=== PATIENT | female | born 1930 | race Caucasian/White ===

== ENCOUNTER 2017-03-30 06:13 | Inpatient (IN) | payer MEDICARE, BC ==
[~2017-03-30] VITALS: Ht 154.9 cm; Wt 45.4 kg
[2017-03-30] VITALS (7 sets, daily range): BP systolic 92–166; BP diastolic 57–79; PULSE 60–86; RESP 17–18; TEMP 96.6–98.6; O2SAT 93–97
[~2017-03-30 06:13] MED LIST: BONE UP; MEMA10 PO
[2017-03-30] MEDS ORDERED: D 50CAP2 PO (06:25)
[2017-03-30] MEDS ORDERED: CELE10TA PO (06:25)
[2017-03-30] MEDS ORDERED: MELA5 PO (06:25)
[2017-03-30] MEDS ORDERED: MEMA1TAB2 PO (06:25)
[2017-03-30] MEDS ORDERED: MULTTAB67 PO (06:25)
--- NOTE | 2017-03-30 06:48 | PD ---
HPI Chief Complaint: Hip Injury Time Seen by Provider: 06:43 Travel History International Travel<30 days: No Contact w/Intl Traveler<30days: No Traveled to known affect area: No History of Present Illness HPI Patient is an 87-year-old from a residential fell comes in with pain in her right lateral hip area there is no hematoma slight swelling patient does not seem to be in distress she has dementia when I ask her if she has pain she points to her hip lateral. She has pain with internal rotation of the femoral head. Mild shortening of the right foot it is not everted. She is given 2 of morphine en route by paramedics. Patient is a poor historian due to her dementia ROS and history of present illness is limited due to dementia patient is oriented only to person. The injury happened just prior to arrival and patient has not seen another M.D. for this 2 of morphine was given en route with moderate relief of her pain. Patient does not seem to have any extremity pain while she is lying still on the stretcher [facility] Past Medical History Alzheimer's Disease: Yes Arthritis: Yes Depression: Yes (DEPRESSIVE EPISODES ) Cancer: No Diabetes: No Diminished Hearing: Yes Hepatitis: No Hiatal Hernia: No Hypertension: No Insomnia: Yes Medical other: Yes (DYSPHAGIA, ATHEROSCLEROSIS OF [place] IN [place] ARTERIES BLE) Thyroid Disease: No Tetanus Vaccination: Never Vaccinated Past Surgical History Eye Surgery: Yes (RIGHT EYE CATARACT SX) Gynecologic Surgery: Yes (HYSTERECTOMY) Pacemaker: No Other Surgery: Yes Social History Alcohol Use: No Tobacco Use: No Substance Use: No Allergies-Medications (Allergen,Severity, Reaction): Coded Allergies: No Known Allergies (Verified Allergy, Unknown, 03/30/17) Reported Meds & Prescriptions Reported Meds & Active Scripts Active Reported Multiple Vitamin 1 Tab 1 Tab PO DAILY Memantine 10 Mg Tab 10 Mg PO DAILY Melatonin 5 Mg Tab 3 Mg PO HS D3 Maximum Strength (Cholecalciferol) 5,000 Unit Cap 5,000 Units PO DAILY Celexa (Citalopram Hydrobromide) 10 Mg Tab 10 Mg PO DAILY [Bone Up] DAILYPRN Review of Systems ROS Limitations: Poor Historian (dementia), Other: (dementia) Musculoskeletal: Positive: Myalgias, Arthralgias (right hip tender after fall) Physical Exam Narrative GENERAL: Patient is lying in the stretcher not moving and with no significant distress at this time SKIN: Warm and dry. HEAD: Atraumatic. Normocephalic. EYES: Pupils equal and round. No scleral icterus. No injection or drainage. ENT: No nasal bleeding or discharge. Mucous membranes pink and moist. NECK: Trachea midline. No JVD. CARDIOVASCULAR: Regular rate and rhythm. RESPIRATORY: No accessory muscle use. Clear to auscultation. Breath sounds equal bilaterally. GASTROINTESTINAL: Abdomen soft, non-tender, nondistended. Hepatic and splenic margins not palpable. MUSCULOSKELETAL: Extremities: patient has tenderness to the lateral aspect of her right hip , no hematoma seen , + mild swelling. slight internal rotation of leg causes increased pain NEUROLOGICAL: Awake and alert. No obvious focal deficit PSYCHIATRIC: Patient is oriented to person only. Data Data Last Documented VS Vital Signs Date Time Temp Pulse Resp B/P (MAP) Pulse Ox O2 Delivery O2 Flow Rate FiO2 03/30/17 07:52 67 18 97 Room Air 03/30/17 06:16 98.1 Orders Orders Hip, Uni(Ap&Lat) W Ap Pelvis (03/30/17 ) Electrocardiogram (03/30/17 07:21) Complete Blood Count With Diff (03/30/17 07:21) Comprehensive Metabolic Panel (03/30/17 07:21) Prothrombin Time / Inr (Pt) (03/30/17 07:21) Act Partial Throm Time (Ptt) (03/30/17 07:21) Urinalysis - C+S If Indicated (03/30/17 07:21) Type And Screen (03/30/17 07:21) Chest, Single Ap (03/30/17 07:21) Iv Access Insert/Monitor (03/30/17 07:21) Oximetry (03/30/17 07:21) Ecg Monitoring (03/30/17 07:21) Sodium Chloride 0.9% Flush (Ns Flush) (03/30/17 07:30) Diet Npo (03/30/17 Breakfast) Morphine Inj (Morphine Inj) (03/30/17 07:30) Urine Culture (03/30/17 08:20) Consult Orthopedic (03/30/17 ) Urinary Catheter Insert/Apply (03/30/17 09:00) Ct Hip W/O Contrast (03/30/17 ) Ceftriaxone Inj (Rocephin Inj) (03/30/17 09:15) (Hub Use Only)Inp Phy Cons/Ref (03/30/17 ) Admit Order (Ed Use Only) (03/30/17 09:27) Labs Laboratory Tests Test 03/30/17 07:46 03/30/17 08:20 White Blood Count 9.4 TH/MM3 Red Blood Count 4.36 MIL/MM3 Hemoglobin 12.4 GM/DL Hematocrit 37.2 % Mean Corpuscular Volume 85.3 FL Mean Corpuscular Hemoglobin 28.4 PG Mean Corpuscular Hemoglobin Concent 33.3 % Red Cell Distribution Width 13.8 % Platelet Count 239 TH/MM3 Mean Platelet Volume 8.5 FL Neutrophils (%) (Auto) 77.6 % Lymphocytes (%) (Auto) 14.3 % Monocytes (%) (Auto) 6.9 % Eosinophils (%) (Auto) 0.5 % Basophils (%) (Auto) 0.7 % Neutrophils # (Auto) 7.3 TH/MM3 Lymphocytes # (Auto) 1.4 TH/MM3 Monocytes # (Auto) 0.6 TH/MM3 Eosinophils # (Auto) 0.0 TH/MM3 Basophils # (Auto) 0.1 TH/MM3 CBC Comment DIFF FINAL Differential Comment Prothrombin Time 10.9 SEC Prothromb Time International Ratio 1.1 RATIO Activated Partial Thromboplast Time 26.3 SEC Blood Urea Nitrogen 16 MG/DL Creatinine 0.61 MG/DL Random Glucose 96 MG/DL Total Protein 7.0 GM/DL Albumin 3.5 GM/DL Calcium Level 8.7 MG/DL Alkaline Phosphatase 77 U/L Aspartate Amino Transf (AST/SGOT) 42 U/L Alanine Aminotransferase (ALT/SGPT) 26 U/L Total Bilirubin 0.8 MG/DL Sodium Level 139 MEQ/L Potassium Level 4.9 MEQ/L Chloride Level 105 MEQ/L Carbon Dioxide Level 29.1 MEQ/L Anion Gap 5 MEQ/L Estimat Glomerular Filtration Rate 93 ML/MIN Urine Color YELLOW Urine Turbidity CLEAR Urine pH 7.0 Urine Specific [place] 1.018 Urine Protein NEG mg/dL Urine Glucose (UA) NEG mg/dL Urine Ketones NEG mg/dL Urine Occult Blood NEG Urine Nitrite NEG Urine Bilirubin NEG Urine Urobilinogen LESS THAN 2.0 MG/DL Urine Leukocyte Esterase TRACE Urine RBC 2 /hpf Urine WBC 1 /hpf Urine Squamous Epithelial Cells <1 /hpf Urine Transitional Epithelial Cells <1 /hpf Urine Amorphous Sediment FEW Urine Bacteria RARE /hpf Urine Mucus FEW /lpf Microscopic Urinalysis Comment CATH-CULTURE IND MDM Medical Decision Making Medical Screen Exam Complete: Yes Emergency Medical Condition: Yes Differential Diagnosis fractured HIP vs contusion vs muscle strain vs rami fracture pelvis ... Narrative Course hi suspicion of right HIP frx based on clinical exam , ordered xrays and signed out to next attending to follow and dispo Scripts Calcium Carbonate-Vitamin D (Calcium 600+D 200) 600-200 Mg-Unit Tab 1 TAB PO BID for Nutritional Supplement, #90 TAB 0 Refills Prov: Nima Sanchez Jr. 03/31/17 Ergocalciferol (Ergocalciferol) 50,000 Unit Cap 30632 UNITS PO Q7D for Nutritional Supplement, #8 CAP Prov: Nima Sanchez Jr. 03/31/17 Rivaroxaban (Xarelto) 10 Mg Tab 10 MG PO DAILY for Blood Clot Prevention, #14 TAB 0 Refills Prov: Nima Sanchez Jr. 03/31/17 Hydrocodone-Acetaminophen ([place]) 5 Mg-325 Mg Tab 1 TAB PO Q4H Y for PAIN, #40 TAB 0 Refills Prov: Nima Sanchez Jr. 03/31/17 Tobias Petty MD Mar 30, 2017 06:48
--- NOTE | 2017-03-30 07:17 | RADRPT ---
EXAM DATE/TIME: 03/30/2017 06:48 CORRECTION Corrected on: March 30, 2017; [facility] COMPARISON: No previous studies available for comparison. INDICATIONS : Right hip pain post fall MEDICAL HISTORY : None. SURGICAL HISTORY : None. ENCOUNTER: Initial ACUITY: 1 day PAIN SCORE: 9/10 LOCATION: Right pelvis FINDINGS: There is an acute intertrochanteric fracture involving the right proximal femoral neck. Degenerative changes and scoliosis of the lower lumbar spine are noted. CONCLUSION: 1. Acute intertrochanteric fracture involving right proximal femoral neck. 2. Degenerative changes and scoliosis of the lower lumbar spine. Cristi Aranda MD on March 30, 2017 at 7:13 Board Certified Radiologist. This report was verified electronically. Cristi Aranda MD on March 30, 2017 at 10:03 Board Certified Radiologist. This report was verified electronically.
[2017-03-30] MEDS ORDERED: SODIUM CHLORIDE 0.9% FLUSH 10 ML FLUSH IVF PRN (07:30)
[2017-03-30] MEDS ORDERED: MORPHINE SULFATE 2 MG/ML INJ IV PUSH ONE (07:30)
--- NOTE | 2017-03-30 07:50 | RADRPT ---
EXAM DATE/TIME: 03/30/2017 07:30 [facility] COMPARISON: No previous studies available for comparison. INDICATIONS : Shortness of breath. MEDICAL HISTORY : None. SURGICAL HISTORY : None. ENCOUNTER: Initial ACUITY: 1 day PAIN SCORE: 0/10 LOCATION: Bilateral chest FINDINGS: The heart is normal. The pulmonary vascular pattern is normal. There is a questionable nodular densit y within the right apex consistent with nodular infiltrate or true pulmonary nodule. Underlying emphy sematous changes are noted bilaterally. Degenerative changes and scoliosis of the thoracic spine are noted. CONCLUSION: 1. Questionable nodular density within the right apex consistent with nodule or nodular infiltrate. 2. Scattered emphysematous changes bilaterally. 3. Degenerative changes and scoliosis of the thoracic spine. Cristi Aranda MD on March 30, 2017 at 7:45 Board Certified Radiologist. This report was verified electronically.
[2017-03-30 08:11] LABS: AUTOMATED NEUTROPHIL # 7.3 TH/MM3 (1.8-7.7); BASOPHIL # 0.1 TH/MM3 (0-0.2); BASOPHIL % 0.7 % (0.0-2.0); EOSINOPHIL % 0.5 % (0.0-4.0); HEMATOCRIT 37.2 % (35.0-46.0); HEMOGLOBIN 12.4 GM/DL (11.6-15.3); LYMPH % 14.3 % (9.0-44.0); LYMPHOCYTE # 1.4 TH/MM3 (1.0-4.8); MEAN CELL VOLUME 85.3 FL (80.0-100.0); MEAN CORPUSCULAR HEMOGLOBIN 28.4 PG (27.0-34.0); MEAN CORPUSCULAR HGB CONC 33.3 % (32.0-36.0); MEAN PLATELET VOLUME 8.5 FL (7.0-11.0); MONO % 6.9 % (0.0-8.0); MONOCYTE # 0.6 TH/MM3 (0-0.9); NEUT % 77.6 % (16.0-70.0); PLATELET COUNT 239 TH/MM3 (150-450); RED BLOOD COUNT 4.36 MIL/MM3 (4.00-5.30); RED CELL DISTRIBUTION WIDTH 13.8 % (11.6-17.2); WHITE BLOOD COUNT 9.4 TH/MM3 (4.0-11.0)
[2017-03-30 08:24] LABS: INTERNATIONAL NORMALIZED RATIO 1.1 RATIO; PROTHROMBIN TIME - PATIENT 10.9 SEC (9.8-11.6)
[2017-03-30 08:31] LABS: ALKALINE PHOSPHATASE 77 U/L (45-117); TOTAL BILIRUBIN ADULT 0.8 MG/DL (0.2-1.0)
[2017-03-30 08:32] LABS: ALBUMIN 3.5 GM/DL (3.4-5.0); ALT (GPT) 26 U/L (10-53); BICARBONATE 29.1 MEQ/L (21.0-32.0); BLOOD UREA NITROGEN 16 MG/DL (7-18); CALCIUM 8.7 MG/DL (8.5-10.1); CHLORIDE 105 MEQ/L (98-107); CREATININE 0.61 MG/DL (0.50-1.00); GLOMERULAR FILTRATION RATE 93 ML/MIN (>89); GLUCOSE,RANDOM 96 MG/DL (74-106); SODIUM (NA) 139 MEQ/L (136-145)
[2017-03-30 08:36] LABS: AST (GOT) 42 U/L (15-37)
[2017-03-30 08:52] LABS: AMORPHOUS SEDIMENT, URINE FEW; BACTERIA, URINE RARE /hpf; BILIRUBIN, URINE NEG (NEG); BLOOD, URINE NEG (NEG); GLUCOSE,URINE NEG (NEG); KETONE, URINE NEG (NEG); MUCUS URINE FEW /lpf (OCC); NITRITE,URINE NEG (NEG); SQUAMOUS EPITHELIAL CELL URINE <1 /hpf (0-5); TRANSITIONAL EPI CELLS, URINE <1 /hpf; URINE COLOR YELLOW (YELLW/STRAW); URINE LEUKOCYTE ESTERASE TRACE (NEG)
--- NOTE | 2017-03-30 09:12 | PD ---
Physical Exam Narrative GENERAL: Well-nourished, well-developed patient. SKIN: Warm and dry. HEAD: Normocephalic and atraumatic. EYES: No injection or drainage. ENT: No nasal drainage noted. NECK: Supple, trachea midline. CARDIOVASCULAR: Regular rate and rhythm RESPIRATORY: no increased effort. No accessory muscle use. EXTREMITIES: pain with movement of right hip NEUROLOGICAL: Awake and alert to name. Motor and sensory grossly within normal limits. Normal speech. Data Data Last Documented VS Vital Signs Date Time Temp Pulse Resp B/P (MAP) Pulse Ox O2 Delivery O2 Flow Rate FiO2 03/30/17 07:52 67 18 97 Room Air 03/30/17 06:16 98.1 Orders Orders Hip, Uni(Ap&Lat) W Ap Pelvis (03/30/17 ) Electrocardiogram (03/30/17 07:21) Complete Blood Count With Diff (03/30/17 07:21) Comprehensive Metabolic Panel (03/30/17 07:21) Prothrombin Time / Inr (Pt) (03/30/17 07:21) Act Partial Throm Time (Ptt) (03/30/17 07:21) Urinalysis - C+S If Indicated (03/30/17 07:21) Type And Screen (03/30/17 07:21) Chest, Single Ap (03/30/17 07:21) Iv Access Insert/Monitor (03/30/17 07:21) Oximetry (03/30/17 07:21) Ecg Monitoring (03/30/17 07:21) Sodium Chloride 0.9% Flush (Ns Flush) (03/30/17 07:30) Diet Npo (03/30/17 Breakfast) Morphine Inj (Morphine Inj) (03/30/17 07:30) Urine Culture (03/30/17 08:20) Consult Orthopedic (03/30/17 ) Urinary Catheter Insert/Apply (03/30/17 09:00) Ct Hip W/O Contrast (03/30/17 ) Ceftriaxone Inj (Rocephin Inj) (03/30/17 09:15) (Hub Use Only)Inp Phy Cons/Ref (03/30/17 ) Admit Order (Ed Use Only) (03/30/17 09:27) Labs Laboratory Tests Test 03/30/17 07:46 03/30/17 08:20 White Blood Count 9.4 TH/MM3 Red Blood Count 4.36 MIL/MM3 Hemoglobin 12.4 GM/DL Hematocrit 37.2 % Mean Corpuscular Volume 85.3 FL Mean Corpuscular Hemoglobin 28.4 PG Mean Corpuscular Hemoglobin Concent 33.3 % Red Cell Distribution Width 13.8 % Platelet Count 239 TH/MM3 Mean Platelet Volume 8.5 FL Neutrophils (%) (Auto) 77.6 % Lymphocytes (%) (Auto) 14.3 % Monocytes (%) (Auto) 6.9 % Eosinophils (%) (Auto) 0.5 % Basophils (%) (Auto) 0.7 % Neutrophils # (Auto) 7.3 TH/MM3 Lymphocytes # (Auto) 1.4 TH/MM3 Monocytes # (Auto) 0.6 TH/MM3 Eosinophils # (Auto) 0.0 TH/MM3 Basophils # (Auto) 0.1 TH/MM3 CBC Comment DIFF FINAL Differential Comment Prothrombin Time 10.9 SEC Prothromb Time International Ratio 1.1 RATIO Activated Partial Thromboplast Time 26.3 SEC Blood Urea Nitrogen 16 MG/DL Creatinine 0.61 MG/DL Random Glucose 96 MG/DL Total Protein 7.0 GM/DL Albumin 3.5 GM/DL Calcium Level 8.7 MG/DL Alkaline Phosphatase 77 U/L Aspartate Amino Transf (AST/SGOT) 42 U/L Alanine Aminotransferase (ALT/SGPT) 26 U/L Total Bilirubin 0.8 MG/DL Sodium Level 139 MEQ/L Potassium Level 4.9 MEQ/L Chloride Level 105 MEQ/L Carbon Dioxide Level 29.1 MEQ/L Anion Gap 5 MEQ/L Estimat Glomerular Filtration Rate 93 ML/MIN Urine Color YELLOW Urine Turbidity CLEAR Urine pH 7.0 Urine Specific [place] 1.018 Urine Protein NEG mg/dL Urine Glucose (UA) NEG mg/dL Urine Ketones NEG mg/dL Urine Occult Blood NEG Urine Nitrite NEG Urine Bilirubin NEG Urine Urobilinogen LESS THAN 2.0 MG/DL Urine Leukocyte Esterase TRACE Urine RBC 2 /hpf Urine WBC 1 /hpf Urine Squamous Epithelial Cells <1 /hpf Urine Transitional Epithelial Cells <1 /hpf Urine Amorphous Sediment FEW Urine Bacteria RARE /hpf Urine Mucus FEW /lpf Microscopic Urinalysis Comment CATH-CULTURE IND MDM Supervised Visit with MISTY: No Interpretation(s) CBC & BMP Diagram 03/30/17 07:46 Total Protein 7.0, Albumin 3.5, Calcium Level 8.7, Alkaline Phosphatase 77, Aspartate Amino Transf (AST/SGOT) 42 H, Alanine Aminotransferase (ALT/SGPT) 26, Total Bilirubin 0.8 Last 24 hours Impressions Chest X-Ray 03/30/17 0721 Signed Impressions: Service Date/Time: Thursday, March 30, 2017 07:30 - CONCLUSION: 1. Questionable nodular density within the right apex consistent with nodule or nodular infiltrate. 2. Scattered emphysematous changes bilaterally. 3. Degenerative changes and scoliosis of the thoracic spine. Cristi Aranda MD Hip and Pelvis X-Ray 03/30/17 0000 Signed Impressions: Service Date/Time: Thursday, March 30, 2017 06:48 - CONCLUSION: 1. Acute subcapital fracture involving right proximal femoral neck. 2. Degenerative changes and scoliosis of the lower lumbar spine. Cristi Aranda MD Narrative Course Signed over to me to follow x-ray and reevaluate. X-ray shows hip fracture. We 'll discuss with or so and admit. Son arrived at bedside and states patient does have dementia that his advanced but denies other significant medical problems for her. He agrees to admission and surgery Physician Communication Physician Communication ortho states to keep patient npo after midnight and requests ct of hip dr french agrees to admit Diagnosis Primary Impression: Hip fracture Qualified Codes: S72.001A - Fracture of unspecified part of neck of right femur, initial encounter for closed fracture Admitting Information Admitting Physician Requests: Admit Tamica Paredes MD Mar 30, 2017 09:12
[2017-03-30] MEDS ORDERED: cefTRIAXone INJ 1,000 MG in SODIUM CHLORIDE 0.9% INJ 100 ML IV ONE (09:15)
--- NOTE | 2017-03-30 10:04 | RADRPT ---
EXAM DATE/TIME: 03/30/2017 09:25 [facility] COMPARISON: HIP RIGHT (AP&LAT 2/3VWS) W AP PELVIS, March 30, 2017, 6:48. INDICATIONS : Fall, right lateral hip pain and swelling. RADIATION DOSE: 9.38 CTDIvol (mGy) MEDICAL HISTORY : Alzheimer's SURGICAL HISTORY : Hysterectomy. ENCOUNTER: Initial ACUITY: 1 day PAIN SCALE: 5/10 LOCATION: Right pelvis TECHNIQUE: Volumetric scanning of the hip was performed. Using automated exposure control and adjustment of the mA and/or kV according to patient size, radiation dose was kept as low as reasonably achievable to o btain optimal diagnostic quality images. DICOM format image data is available electronically for rev iew and comparison. FINDINGS: There is evidence of an acute mildly displaced intertrochanteric fracture of the right proximal femur . No dislocation is noted. Uncomplicated sigmoid diverticulosis is noted. CONCLUSION: Acute, mildly displaced, intratrochanteric fracture of the right proximal femur. Cristi Aranda MD on March 30, 2017 at 9:59 Board Certified Radiologist. This report was verified electronically.
[2017-03-30] MEDS ORDERED: RESP: ALBUTEROL 2.5 MG/IPRATROPIUM 0.5 MG NEB (PRN) NEB (10:45)
[2017-03-30] MEDS ORDERED: SODIUM CHLORIDE 0.9% FLUSH 10 ML FLUSH IV FLUSH PRN (10:45)
[2017-03-30] MEDS ORDERED: ONDANSETRON HCL 4 MG/2 ML VIAL IVP PRN (10:45)
[2017-03-30] MEDS: MEMANTINE HCL 10 MG TAB PO SCH (10:45)
[2017-03-30] MEDS ORDERED: MAGNESIUM HYDROXIDE SUSP 30 ML CUP PO PRN (10:45)
[2017-03-30] MEDS ORDERED: NALOXONE HCL 0.4 MG/ML AMP IV PUSH PRN (10:45)
[2017-03-30] MEDS ORDERED: ACETAMINOPHEN 325 MG TAB PO PRN ×2 (10:45)
[2017-03-30] MEDS ORDERED: KETOROLAC TROMETHAMINE 30 MG/ML (IVP) VIAL IV PUSH PRN (10:45)
[2017-03-30] MEDS ORDERED: ENALAPRILAT 2.5 MG/2 ML VIAL IV PUSH PRN (10:45)
--- NOTE | 2017-03-30 10:51 | HHI.HP ---
HPI Service [facility] Primary Care Physician Salvador Vásquez MD Admission Diagnosis hip fracture Diagnoses: (1) Anxiety (2) Hip fracture (3) Alzheimer's dementia Chief Complaint: Right hip pain Travel History International Travel<30 Days: No Contact w/Intl Traveler <30 Da: No Traveled to Known Affected Are: No History of Present Illness 87 year-old female with a history of dementia, anxiety and a resident at a local [facility] facility was brought to the ED last night for evaluation of right hip pain post mechanical fall. Per EMR, the patient fell she complained of pain in her right lateral hip area. Secondary to dementia patient was unable to quantify intensity of pain, however during my exam she was grimacing and moaning every time she would turn and move her right lower extremity. Lower extremity CT reveals acute mildly displaced intratrochanteric fracture of the right proximal femur. There is no report of GI bleed and patient denies any chest pain or shortness of breath. Her son was out of bedside during this encounter. Review of Systems Except as stated in HPI: all other systems reviewed are Neg Past Family Social History Past Medical History Alzheimer's Disease: Yes Arthritis: Yes Depression: Yes (DEPRESSIVE EPISODES ) Diminished Hearing: Yes Medical other: Yes (DYSPHAGIA, ATHEROSCLEROSIS OF [place] ARTERIES BLE) Past Surgical History Left EYE CATARACT SX) HYSTERECTOMY Reported Medications Multiple Vitamin 1 Tab 1 Tab PO DAILY Memantine 10 Mg Tab 10 Mg PO DAILY Melatonin 5 Mg Tab 3 Mg PO HS D3 Maximum Strength (Cholecalciferol) 5,000 Unit Cap 5,000 Units PO DAILY Celexa (Citalopram Hydrobromide) 10 Mg Tab 10 Mg PO DAILY [Bone Up] DAILYPRN Allergies: Coded Allergies: No Known Allergies (Verified Allergy, Unknown, 03/30/17) Family History Due to patient's advanced age, family history not relevant Social History Alcohol Use: No Tobacco Use: No Substance Use: No Physical Exam Vital Signs Vital Signs Date Time Temp Pulse Resp B/P (MAP) Pulse Ox O2 Delivery O2 Flow Rate FiO2 03/30/17 07:52 67 18 97 Room Air 03/30/17 07:10 64 18 133/77 (95) 96 Room Air 03/30/17 07:10 68 18 96 Room Air 03/30/17 06:16 98.1 60 18 166/79 (108) 96 Physical Exam GENERAL: This is a well-nourished, well-developed patient, in mild distress SKIN: No rashes, ecchymoses or lesions. Cool and dry. HEAD: Atraumatic. Normocephalic. No temporal or scalp tenderness. EYES: Pupils equal round and reactive. Extraocular motions intact. No scleral icterus. No injection or drainage. ENT: Nose without bleeding, purulent drainage or septal hematoma. Throat without erythema, tonsillar hypertrophy or exudate. Uvula midline. Airway patent. NECK: Trachea midline. No JVD or lymphadenopathy. Supple, nontender, no meningeal signs. CARDIOVASCULAR: Regular rate and rhythm without murmurs, gallops, or rubs. RESPIRATORY: Clear to auscultation. Breath sounds equal bilaterally. No wheezes , rales, or rhonchi. GASTROINTESTINAL: Abdomen soft, non-tender, nondistended. No hepato-splenomegaly , or palpable masses. No guarding. MUSCULOSKELETAL: Extremities without clubbing, cyanosis, or edema. RLE TTP with decrease ROM at the hip joint NEUROLOGICAL: Awake and alert. Cranial nerves II through XII intact. Motor and sensory grossly within normal limits. Five out of 5 muscle strength in all muscle groups. Laboratory Laboratory Tests Test 03/30/17 07:46 03/30/17 08:20 White Blood Count 9.4 Red Blood Count 4.36 Hemoglobin 12.4 Hematocrit 37.2 Mean Corpuscular Volume 85.3 Mean Corpuscular Hemoglobin 28.4 Mean Corpuscular Hemoglobin Concent 33.3 Red Cell Distribution Width 13.8 Platelet Count 239 Mean Platelet Volume 8.5 Neutrophils (%) (Auto) 77.6 Lymphocytes (%) (Auto) 14.3 Monocytes (%) (Auto) 6.9 Eosinophils (%) (Auto) 0.5 Basophils (%) (Auto) 0.7 Neutrophils # (Auto) 7.3 Lymphocytes # (Auto) 1.4 Monocytes # (Auto) 0.6 Eosinophils # (Auto) 0.0 Basophils # (Auto) 0.1 CBC Comment DIFF FINAL Differential Comment Prothrombin Time 10.9 Prothromb Time International Ratio 1.1 Activated Partial Thromboplast Time 26.3 Blood Urea Nitrogen 16 Creatinine 0.61 Random Glucose 96 Total Protein 7.0 Albumin 3.5 Calcium Level 8.7 Alkaline Phosphatase 77 Aspartate Amino Transf (AST/SGOT) 42 Alanine Aminotransferase (ALT/SGPT) 26 Total Bilirubin 0.8 Sodium Level 139 Potassium Level 4.9 Chloride Level 105 Carbon Dioxide Level 29.1 Anion Gap 5 Estimat Glomerular Filtration Rate 93 Urine Color YELLOW Urine Turbidity CLEAR Urine pH 7.0 Urine Specific [place] 1.018 Urine Protein NEG Urine Glucose (UA) NEG Urine Ketones NEG Urine Occult Blood NEG Urine Nitrite NEG Urine Bilirubin NEG Urine Urobilinogen LESS THAN 2.0 Urine Leukocyte Esterase TRACE Urine RBC 2 Urine WBC 1 Urine Squamous Epithelial Cells <1 Urine Transitional Epithelial Cells <1 Urine Amorphous Sediment FEW Urine Bacteria RARE Urine Mucus FEW Microscopic Urinalysis Comment CATH-CULTURE IND Date/Time Source Procedure Growth Status 03/30/17 08:20 Urine Catheterized Urine Urine Culture Pending Received Result Diagram: 03/30/17 0746 03/30/17 0746 Imaging Last Impressions Chest X-Ray 03/30/17 0721 Signed Impressions: Service Date/Time: Thursday, March 30, 2017 07:30 - CONCLUSION: 1. Questionable nodular density within the right apex consistent with nodule or nodular infiltrate. 2. Scattered emphysematous changes bilaterally. 3. Degenerative changes and scoliosis of the thoracic spine. Cristi Aranda MD Lower Extremity CT 03/30/17 0000 Signed Impressions: Service Date/Time: Thursday, March 30, 2017 09:25 - CONCLUSION: Acute, mildly displaced, intratrochanteric fracture of the right proximal femur. Cristi Aranda MD Hip and Pelvis X-Ray 03/30/17 0000 Signed Impressions: Service Date/Time: Thursday, March 30, 2017 06:48 - CONCLUSION: 1. Acute intertrochanteric fracture involving right proximal femoral neck. 2. Degenerative changes and scoliosis of the lower lumbar spine. Cristi Aranda MD Septic Shock Reassessment Septic shock perfusion: reassessment completed Caprini VTE Risk Assessment Caprini VTE Risk Assessment: Mod/High Risk (score >= 2) Caprini Risk Assessment Model Point Value = 1 Point Value = 2 Point Value = 3 Point Value = 5 Age 41-60 Minor surgery BMI > 25 kg/m2 Swollen legs Varicose veins or History of unexplained or recurrent spontaneous Oral contraceptives or hormone replacement Sepsis (< 1 month) Serious lung disease, including pneumonia (< 1 month) Abnormal pulmonary function Acute myocardial infarction Congestive heart failure (< 1 month) History of inflammatory bowel disease Medical patient at bed rest Age 61-74 Arthroscopic surgery Major open surgery (> 45 min) Laparoscopic surgery (> 45 min) Malignancy Confined to bed (> 72 hours) Immobilizing plaster cast Central venous access Age >= 75 History of VTE Family history of VTE Factor V Leiden Prothrombin [id number] Lupus anticoagulant Anticardiolipin antibodies Elevated serum homocysteine Heparin-induced thrombocytopenia Other congenital or acquired thrombophilia Stroke (< 1 month) Elective arthroplasty Hip, pelvis, or leg fracture Acute spinal cord injury (< 1 month) Prophylaxis Regimen Total Risk Factor Score Risk Level Prophylaxis Regimen 0-1 Low Early ambulation 2 Moderate Order ONE of the following: *Sequential Compression Device (SCD) *Heparin 5000 units SQ BID 3-4 Higher Order ONE of the following medications: *Heparin 5000 units SQ TID *Enoxaparin/Lovenox 40 mg SQ daily (WT < 150 kg, CrCl > 30 mL/min) *Enoxaparin/Lovenox 30 mg SQ daily (WT < 150 kg, CrCl > 10-29 mL/min) *Enoxaparin/Lovenox 30 mg SQ BID (WT < 150 kg, CrCl > 30 mL/min) AND/OR *Sequential Compression Device (SCD) 5 or more Highest Order ONE of the following medications: *Heparin 5000 units SQ TID (Preferred with Epidurals) *Enoxaparin/Lovenox 40 mg SQ daily (WT < 150 kg, CrCl > 30 mL/min) *Enoxaparin/Lovenox 30 mg SQ daily (WT < 150 kg, CrCl > 10-29 mL/min) *Enoxaparin/Lovenox 30 mg SQ BID (WT < 150 kg, CrCl > 30 mL/min) AND *Sequential Compression Device (SCD) Assessment and Plan Problem List: (1) Hip fracture ICD Code: S72.009A - Fracture of unspecified part of neck of unspecified femur , initial encounter for closed fracture Status: Acute (2) Alzheimer's dementia ICD Code: G30.9 - Alzheimer's disease, unspecified Assessment and Plan 87-year-old female with Right hip fracture Status post mechanical fall Right lower extremity CT noted and review by me with finding of acute mildly displaced intratrochanteric fracture of the right proximal femur Hip and pelvis x-ray noted and reviewed by me with finding of acute mildly displaced intratrochanteric fracture of the right proximal femur Orthopedic surgery consulted and plan for repair in a.m. Parenteral pain management DVT prophylaxis post procedure per orthopedic surgery PT consult postprocedure Alzheimer dementia Resume Namenda Anxiety Resume Celexa DVT prophylaxis: Post procedure per orthopedic surgery Code Status Full code Discussed Condition With Patient, son, ED physician Physician Certification 2 Midnight Certification Type: Admission for Inpatient Services Order for Inpatient Services The services are ordered in accordance with Medicare regulations or non- Medicare payer requirements, as applicable. In the case of services not specified as inpatient-only, they are appropriately provided as inpatient services in accordance with the 2-midnight benchmark. Estimated LOS (days): 2 days is the estimated time the patient will need to remain in the hospital, assuming treatment plan goals are met and no additional complications. Post-Hospital Plan: Not yet determined Problem Qualifiers (1) Hip fracture: Qualified Codes: S72.001A - Fracture of unspecified part of neck of right femur , initial encounter for closed fracture Moe Chappell MD Mar 30, 2017 10:51
[2017-03-30] MEDS: KETOROLAC TROMETHAMINE 30 MG/ML (IVP) VIAL IV PUSH PRN ×2 (12:09→19:43)
[2017-03-30] MEDS: SODIUM CHLORIDE 0.9% FLUSH 10 ML FLUSH IV FLUSH SCH (19:44)
[2017-03-30] MEDS ORDERED: LACTATED RINGER'S 1000 ML IV PRN (21:30)
[2017-03-30] MEDS ORDERED: INSULIN HUMAN REGULAR 1,000 UNITS/10 ML VIAL SQ PRN (21:30)
[2017-03-30] MEDS ORDERED: SODIUM CHLORID 0.9% 500 ML IV PRN (21:30)
[2017-03-30] MEDS ORDERED: CHLORHEXIDINE GLUCONATE 2 % 1 PACK (2 CLOTHS) TOPICAL PRN (21:30)
[2017-03-30] MEDS ORDERED: METOPROLOL TARTRATE 25 MG TAB PO PRN (21:30)
[2017-03-30] MEDS ORDERED: POVIDONE IODINE 5% (ANTISEPSIS KIT) 4 APPLICATIONS EACH NARE PRN (21:30)
[2017-03-31] MEDS ORDERED: VANCOMYCIN HCL 1000 MG VIAL ONE (03:51)
[2017-03-31] MEDS ORDERED: ceFAZolin INJ 1,000 MG VIAL ONE (03:51)
[2017-03-31 04:32] VITALS: BP 120/62; PULSE 76; RESP 18; TEMP 96.4; O2SAT 94
[2017-03-31] MEDS: SODIUM CHLOR 0.9% 1000 ML INJ 1,000 ML IV SCH (05:30)
[2017-03-31] MEDS ORDERED: GENTAMICIN SULFATE 80 MG/2 ML VIAL ONE (06:41)
--- NOTE | 2017-03-31 06:59 | PD.ORT.PN ---
Subjective Subjective Remarks Lives at group home facility. Fall and had significant pain to right hip Objective Vitals Vital Signs Date Time Temp Pulse Resp B/P (MAP) Pulse Ox O2 Delivery O2 Flow Rate FiO2 03/31/17 04:32 96.4 76 18 120/62 (81) 94 03/30/17 23:24 96.6 82 18 127/60 (82) 96 03/30/17 19:32 97.2 76 18 92/57 (69) 93 03/30/17 15:00 98.2 72 17 98/59 (72) 97 03/30/17 12:03 03/30/17 11:54 98.6 86 17 133/69 (90) 96 03/30/17 07:52 67 18 97 Room Air 03/30/17 07:10 64 18 133/77 (95) 96 Room Air 03/30/17 07:10 68 18 96 Room Air I/O 03/30/17 03/30/17 03/30/17 03/31/17 03/31/17 03/31/17 07:00 15:00 23:00 07:00 15:00 23:00 Intake Total 240 ml 480 ml Output Total 175 ml 150 ml Balance 65 ml 330 ml Intake Oral 240 ml 480 ml Output Urine Total 175 ml 150 ml # Voids 0 # Bowel Movements 0 0 Result Diagram: 03/30/17 0746 03/30/17 0746 Other Results Laboratory Tests Test 03/30/17 07:46 Prothromb Time International Ratio 1.1 RATIO Prothrombin Time 10.9 SEC (9.8-11.6) Imaging Last 24 hours Impressions Chest X-Ray 03/30/17 0721 Signed Impressions: Service Date/Time: Thursday, March 30, 2017 07:30 - CONCLUSION: 1. Questionable nodular density within the right apex consistent with nodule or nodular infiltrate. 2. Scattered emphysematous changes bilaterally. 3. Degenerative changes and scoliosis of the thoracic spine. Cristi Aranda MD Objective Remarks right lower extremity: Pain to palpation over hip. Patient is laying in position for pain control. Distally intact sensation. No tenderness to palpation over knee or ankle Assessment & Plan Assessment and Plan Right intertrochanteric femur fracture Nothing by mouth Sign consents Surgery this morning for intramedullary ava fixation right femur Nima Sanchez Jr. Mar 31, 2017 06:59
[2017-03-31] MEDS ORDERED: VITA500012 PO (07:04)
[2017-03-31] MEDS ORDERED: NORC5TAB PO (07:04)
[2017-03-31] MEDS ORDERED: XARE10TA PO (07:04)
[2017-03-31] MEDS ORDERED: CALCTAB19 PO (07:04)
[2017-03-31] MEDS ORDERED: BUPIVACAINE/EPINEPHRINE 0.25% PF 30 ML VIAL ONE (07:40)
[2017-03-31] MEDS ORDERED: ERGOCALCIFEROL (VIT D2) 50,000 UNIT CAP PO ONE (08:15)
[2017-03-31] MEDS ORDERED: diphenhydrAMINE HCL 25 MG CAP PO PRN (08:15)
--- NOTE | 2017-03-31 08:16 | PD.OP ---
cc: Rene Mcbride MD Operative Report Date of Surgery: Mar 31, 2017 Preoperative Diagnosis: Right hip intertrochanteric fracture Postoperative Diagnosis: Procedure: Reduction and intramedullary nail fixation right hip Anesthesia: Gen. Surgeon: Rene Mcbride Apprenticeship Training Representative(s): MARGE Herrera PA-C The surgical procedure was assisted by my physician pharmacy affairs assistant. My P.A. presence was necessary throughout this case for the manipulation and positioning of the surgical extremity. My P.A. was assisting me throughout the duration of this procedure. The skill set of a physician pharmacy affairs assistant was medically necessary to complete this procedure. During the surgical case the certified surgical technician was working at the back table and the physician pharmacy affairs assistant was directly assisting me. Operation and Findings: Implants used: [10]mm Synthes TFNA short troch nail Plan of activity: Weight-bear as tolerated Patient was seen and evaluated preoperatively. The patient has significant hip pain from intertrochanteric hip fracture. The risk and benefits of surgery were discussed in depth with the patient to include bleeding infection nonunion malunion and need for hip replacement painful hardware as well as medical competitions including but not stroke heart attack and . Informed consent was obtained. Operative site was marked. Patient was brought to the operating room and placed on fracture table. IV sedation was administered by anesthesiologist. Timeout procedure was performed. Hip and leg were prepped with alcohol followed by DuraPrep and draped in the usual sterile fashion. IV antibiotics were given prior to incision. Procedure began with reduction of fracture. Traction was applied. The leg was manipulated to achieve reduction. Excellent reduction was achieved. Fluoroscopy was used to confirm reduction. A three inch incision was made proximal to the trochanter. Subcutaneous tissue was dissected bluntly. Guidepin was placed at the tip of the trochanter and advanced into the femoral canal. Fluoroscopy confirmed appropriate guidepin placement. A opening reamer was placed over the guidepin. The Synthes TFNA nail was attached to the insertion handle. Nail was now placed through the tip of the trochanter into the femoral canal. Fluoroscopy confirmed appropriate nail placement. A second incision was made over the lateral thigh. Cannulas were placed through the insertion handle down to the femur. Guidepin was now placed through the femoral nail into the center of the femoral head. Fluoroscopy confirmed appropriate guidepin placement. Screw length was measured. Cannulated drill was placed over the guidepin. Appropriate length lag screw was now placed. Traction was released and compression was applied. The set screw was now tightened in dynamic mode. Using the insertion handle as a guide a distal interlocking screw was drilled and placed. Final fluoroscopy revealed well aligned fracture with well-placed hardware. Incision was closed with 3-0 Vicryl and carie. Sterile dressings were applied. Patient was awakened and transferred to recovery room. Rene Mcbride MD Mar 31, 2017 08:16
--- NOTE | 2017-03-31 08:29 | RADRPT ---
EXAM DATE/TIME: 03/31/2017 08:05 [facility] COMPARISON: No previous studies available for comparison. INDICATIONS : Right hip fracture. Post troch nail. MEDICAL HISTORY : None. SURGICAL HISTORY : None. ENCOUNTER: Initial ACUITY: 1 day PAIN SCORE: Non-responsive. LOCATION: Right hip. FINDINGS: The patient is status post ORIF of right proximal femur fracture. The hardware appears to be in good position. CONCLUSION: Status post ORIF of right proximal femur fracture with hardware in good position. Cristi Aranda MD on March 31, 2017 at 8:26 Board Certified Radiologist. This report was verified electronically.
--- NOTE | 2017-03-31 08:39 | MB ---
cc: [facility] DATE OF CONSULTATION: 03/31/2017 REASON FOR CONSULTATION: Right hip intertrochanteric fracture. CONSULTING PHYSICIAN Dr. Chappell HISTORY Ellen is an 87-year-old female who has a history of a dementia. She lives in an [facility]. She had a fall yesterday. She presented to the emergency room where x-rays revealed a right hip fracture. She is currently awake on the orthopedic floor. She complains of right hip pain. She does have significant confusion. Her son is at the bedside. She does not recall having any dizziness, syncope or loss of consciousness. Pain is worse with movement. PAST MEDICAL HISTORY ILLNESSES: Alzheimer's disease. Depression. Dysphagia. PAST SURGICAL HISTORY: Hysterectomy. Cataract surgery. MEDICATIONS Medications include: 1. Melatonin 2. Celexa. 3. Multivitamin. ALLERGIES None. FAMILY HISTORY Noncontributory. SOCIAL HISTORY The patient lives in an [facility]. She does not smoke, drink or use drugs currently. REVIEW OF SYSTEMS Unobtainable secondary to dementia. PHYSICAL EXAMINATION The patient is a thin 87-year-old female. She is awake but confused. She appears thin and frail. Vital signs: Temperature 96.4, pulse 76, respirations 18, blood pressure 120/62, O2 sat 94% on room air. Head: The patient is normocephalic. Pupils are equal. Neck: Soft, nontender. Trachea is midline. Abdomen: Soft, nontender, nondistended. Extremities: Examination of bilateral upper extremities reveals no obvious pain or deformity with shoulder, elbow, or wrist motion. She has intact sensation in radial, ulnar, median nerve distribution. She has good capillary refill in all fingers. Radial pulses are palpable bilaterally. Examination of left leg reveals no pain with hip, knee or ankle motion. Skin is intact. Dorsalis pedis pulses palpable. Sensation is intact. Examination of right leg reveals pain with any hip motion. She is tender to palpation around her hip. She has minimal tenderness around her knee, tibia or ankle. Skin is intact. Dorsalis pedis pulses palpable. X-RAYS X-rays of right hip were reviewed. X-rays reveal a displaced right hip intertrochanteric fracture. IMPRESSION 1. Dementia. 2. Osteoporosis. 3. Right hip intertrochanteric fracture. PLAN Treatment options were discussed with the patient and her son. At this point I would recommend reduction, internal fixation of right hip. The risks of surgery include bleeding, infection, injury to arteries, nerves, blood vessels, nonunion, malunion, painful hardware, as well as medical complications including blood clot, stroke, heart attack and . All questions were answered. I will plan on surgery today. A mid-level provider in my office, nurse practitioner or PA, may see this patient on a follow-up basis and continue to implement the objective of this plan including: Starting or adjusting medications, injections of muscle, tendon, bursa or joints, cast application, orthotic or brace application, physical therapy, further radiographic studies including x-ray, MRI, CT, ultrasounds or bone scan, vascular studies, neurologic studies, or other specialist consultations, and proceeding with surgical management as appropriate. MD DARCY Tee/RUSTY /8:07 AM /8:12 AM
[2017-03-31] MEDS ORDERED: DO NOT ADM ANY ANTICOAGULANT DRUGS PRN (08:45)
[2017-03-31] MEDS: PANTOPRAZOLE SODIUM 40 MG VIAL IV PUSH SCH (09:00)
[2017-03-31] MEDS: SODIUM CHLORIDE 0.9% FLUSH 10 ML FLUSH IV FLUSH SCH ×2 (09:00→21:00)
[2017-03-31] MEDS ORDERED: *ONDANSETRON 4 MG VIAL PERIprocedural Use ONLY ONE (09:05)
[2017-03-31] MEDS: MEMANTINE HCL 10 MG TAB PO SCH (09:44)
[2017-03-31] MEDS: CALCIUM/VITAMIN D 250 MG/125 U TAB PO SCH ×3 (09:44→14:57)
[2017-03-31] MEDS: CITALOPRAM HYDROBROMIDE 20 MG TAB PO SCH (09:44)
[2017-03-31] MEDS: CHOLECALCIFEROL (VIT D3) 5000 UNIT CAP PO SCH (09:44)
[2017-03-31] MEDS: MORPHINE SULFATE 2 MG/ML INJ IV PUSH PRN ×2 (09:45→17:58)
--- NOTE | 2017-03-31 10:27 | HHI.PR ---
Subjective Remarks Follow-up right hip fracture 03/31/17-patient seen and examined, she status post Reduction and intramedullary nail fixation right hip 03/31/17. Patient was seen however appear agitated and confused post surgery as she is trying to pull her IV access and surgical line. Son by the bedside Objective Vitals Vital Signs Date Time Temp Pulse Resp B/P (MAP) Pulse Ox O2 Delivery O2 Flow Rate FiO2 03/31/17 09:50 18 03/31/17 09:15 97.9 73 16 153/73 (99) 100 Room Air 03/31/17 09:00 74 17 135/64 (87) 100 Room Air 03/31/17 08:45 73 15 148/62 (90) 100 Nasal Cannula 3 03/31/17 08:26 98.2 73 15 136/93 (107) 99 Nasal Cannula 3 03/31/17 04:32 96.4 76 18 120/62 (81) 94 03/30/17 23:24 96.6 82 18 127/60 (82) 96 03/30/17 19:32 97.2 76 18 92/57 (69) 93 03/30/17 15:00 98.2 72 17 98/59 (72) 97 03/30/17 12:03 03/30/17 11:54 98.6 86 17 133/69 (90) 96 I/O 03/30/17 03/30/17 03/30/17 03/31/17 03/31/17 03/31/17 07:00 15:00 23:00 07:00 15:00 23:00 Intake Total 240 ml 480 ml 650 ml Output Total 175 ml 150 ml 250 ml Balance 65 ml 330 ml 400 ml Intake Oral 240 ml 480 ml IV Total 50 ml Other 600 ml Output Urine Total 175 ml 150 ml 100 ml Estimated Blood Loss 50 ml Other 100 ml # Voids 0 # Bowel Movements 0 0 Result Diagram: 03/30/17 0746 03/30/17 0746 Imaging Last Impressions Hip X-Ray 03/31/17 0000 Signed Impressions: Service Date/Time: Friday, March 31, 2017 08:05 - CONCLUSION: Status post ORIF of right proximal femur fracture with hardware in good position. Cristi Aranda MD Chest X-Ray 03/30/17 0721 Signed Impressions: Service Date/Time: Thursday, March 30, 2017 07:30 - CONCLUSION: 1. Questionable nodular density within the right apex consistent with nodule or nodular infiltrate. 2. Scattered emphysematous changes bilaterally. 3. Degenerative changes and scoliosis of the thoracic spine. Cristi Aranda MD Lower Extremity CT 03/30/17 0000 Signed Impressions: Service Date/Time: Thursday, March 30, 2017 09:25 - CONCLUSION: Acute, mildly displaced, intratrochanteric fracture of the right proximal femur. Cristi Aranda MD Hip and Pelvis X-Ray 03/30/17 0000 Signed Impressions: Service Date/Time: Thursday, March 30, 2017 06:48 - CONCLUSION: 1. Acute intertrochanteric fracture involving right proximal femoral neck. 2. Degenerative changes and scoliosis of the lower lumbar spine. Cristi Aranda MD Objective Remarks GENERAL: NAD although confused SKIN: Warm and dry. HEAD: Normocephalic. EYES: No scleral icterus. No injection or drainage. NECK: Supple, trachea midline. No JVD or lymphadenopathy. CARDIOVASCULAR: Regular rate and rhythm without murmurs, gallops, or rubs. RESPIRATORY: Breath sounds equal bilaterally. No accessory muscle use. GASTROINTESTINAL: Abdomen soft, non-tender, nondistended. MUSCULOSKELETAL: No cyanosis, or edema. Right hip repair and dressing in place , neurovascular intact BACK: Nontender without obvious deformity. No CVA tenderness. A/P Problem List: (1) Hip fracture ICD Code: S72.009A - Fracture of unspecified part of neck of unspecified femur , initial encounter for closed fracture Status: Acute (2) Alzheimer's dementia ICD Code: G30.9 - Alzheimer's disease, unspecified Assessment and Plan 87-year-old female with Right hip fracture s/p Reduction and intramedullary nail fixation right hip Management per orthopedic surgery PT consult to treat and eval Pain management accordingly Secondary to current state of agitation, will apply upper extremity restraints Alzheimer dementia Continue Namenda Anxiety Continue Celexa DVT prophylaxis: Lovenox Problem Qualifiers (1) Hip fracture: Qualified Codes: S72.001A - Fracture of unspecified part of neck of right femur , initial encounter for closed fracture Moe Chappell MD Mar 31, 2017 10:27
[2017-03-31 12:00] VITALS: BP 140/58; PULSE 79; RESP 18; TEMP 96.8; O2SAT 96
[2017-03-31] MEDS ORDERED: ePHEDrine/NS 25 MG/5 ML SYRINGE IV ONE (12:00)
[2017-03-31] MEDS ORDERED: PROPOFOL 200 MG/20 ML AMP IV ONE (12:00)
[2017-03-31] MEDS ORDERED: DEXAMETHASONE SOD PHOS 4 MG/ML VIAL IV ONE (12:00)
[2017-03-31] MEDS ORDERED: PHENYLEPH/NS 1000 MCG/10 ML SYR IV ONE (12:00)
[2017-03-31] MEDS ORDERED: LIDOCAINE HCL 1% PF 5 ML SYRINGE OTHER ONE (12:00)
--- NOTE | 2017-03-31 14:00 | EKG ---
Date Performed: 03/30/2017 Time Performed: 08:04:37 PTAGE: 87 years EKG: Baseline electrical artifact especially in the inferior leads makes interpretation difficul t Nonspecific ST-T change present PREVIOUS TRACING : 01/01/2011 10.08 Since previous tracing, no significant change. DOCTOR: Ty Jorge Interpretating Date/Time 03/31/2017 13:59:59
[2017-03-31 16:00] VITALS: BP 145/64; PULSE 81; RESP 18; TEMP 97.8; O2SAT 92
[2017-03-31 17:07] LABS: AUTOMATED NEUTROPHIL # 7.6 TH/MM3 (1.8-7.7); BASOPHIL % 0.5 % (0.0-2.0); EOSINOPHIL % 0.4 % (0.0-4.0); HEMATOCRIT 29.1 % (35.0-46.0); HEMOGLOBIN 9.7 GM/DL (11.6-15.3); LYMPH % 10.3 % (9.0-44.0); MEAN CORPUSCULAR HGB CONC 33.4 % (32.0-36.0); MEAN PLATELET VOLUME 8.9 FL (7.0-11.0); MONO % 10.9 % (0.0-8.0); MONOCYTE # 1.1 TH/MM3 (0-0.9); NEUT % 77.9 % (16.0-70.0); PLATELET COUNT 187 TH/MM3 (150-450); RED BLOOD COUNT 3.34 MIL/MM3 (4.00-5.30); RED CELL DISTRIBUTION WIDTH 13.9 % (11.6-17.2); WHITE BLOOD COUNT 9.7 TH/MM3 (4.0-11.0)
[2017-03-31 17:29] LABS: ALT (GPT) 21 U/L (10-53); AST (GOT) 23 U/L (15-37); BICARBONATE 29.3 MEQ/L (21.0-32.0); BLOOD UREA NITROGEN 18 MG/DL (7-18); CALCIUM 8.6 MG/DL (8.5-10.1); CHLORIDE 109 MEQ/L (98-107); CREATININE 0.81 MG/DL (0.50-1.00); GLOMERULAR FILTRATION RATE 67 ML/MIN (>89); GLUCOSE,RANDOM 157 MG/DL (74-106); SODIUM (NA) 144 MEQ/L (136-145)
[2017-03-31 17:40] LABS: ALKALINE PHOSPHATASE 65 U/L (45-117); TOTAL BILIRUBIN ADULT 0.7 MG/DL (0.2-1.0); TOTAL PROTEIN 6.3 GM/DL (6.4-8.2)
[2017-03-31 19:44] VITALS: BP 118/68; PULSE 89; RESP 18; TEMP 96.9; O2SAT 97
[2017-04-01] VITALS (7 sets, daily range): BP systolic 110–138; BP diastolic 47–90; PULSE 18–91; RESP 16–18; TEMP 96.4–98.5; O2SAT 91–99
[2017-04-01] MEDS: MORPHINE SULFATE 2 MG/ML INJ IV PUSH PRN ×3 (02:31→21:44)
[2017-04-01] MEDS: SODIUM CHLOR 0.9% 1000 ML INJ 1,000 ML IV SCH (05:19)
[2017-04-01 05:34] LABS: AUTOMATED NEUTROPHIL # 6.2 TH/MM3 (1.8-7.7); BASOPHIL % 0.4 % (0.0-2.0); EOSINOPHIL # 0.1 TH/MM3 (0-0.4); EOSINOPHIL % 0.7 % (0.0-4.0); HEMATOCRIT 26.9 % (35.0-46.0); HEMOGLOBIN 8.9 GM/DL (11.6-15.3); LYMPH % 12.2 % (9.0-44.0); MEAN CELL VOLUME 86.5 FL (80.0-100.0); MEAN CORPUSCULAR HEMOGLOBIN 28.7 PG (27.0-34.0); MEAN CORPUSCULAR HGB CONC 33.2 % (32.0-36.0); MEAN PLATELET VOLUME 8.8 FL (7.0-11.0); MONO % 12.2 % (0.0-8.0); NEUT % 74.5 % (16.0-70.0); PLATELET COUNT 180 TH/MM3 (150-450); RED BLOOD COUNT 3.11 MIL/MM3 (4.00-5.30); RED CELL DISTRIBUTION WIDTH 13.9 % (11.6-17.2); WHITE BLOOD COUNT 8.3 TH/MM3 (4.0-11.0)
[2017-04-01 05:49] LABS: CALCIUM 8.6 MG/DL (8.5-10.1); CREATININE 0.71 MG/DL (0.50-1.00)
--- NOTE | 2017-04-01 06:38 | PD.ORT.PN ---
Subjective Subjective Remarks POD 1 s/p IMN right hip completely confused and demented. [employer] at bedside Objective Vitals Vital Signs Date Time Temp Pulse Resp B/P (MAP) Pulse Ox O2 Delivery O2 Flow Rate FiO2 04/01/17 04:58 96.4 86 18 128/69 (88) 91 04/01/17 00:07 97.3 80 18 116/47 (70) 94 03/31/17 19:44 96.9 89 18 118/68 (85) 97 03/31/17 18:03 18 03/31/17 16:00 97.8 81 18 145/64 (91) 92 03/31/17 15:27 3.00 03/31/17 12:00 96.8 79 18 140/58 (85) 96 03/31/17 09:15 97.9 73 16 153/73 (99) 100 Room Air 03/31/17 09:00 74 17 135/64 (87) 100 Room Air 03/31/17 08:45 73 15 148/62 (90) 100 Nasal Cannula 3 03/31/17 08:26 98.2 73 15 136/93 (107) 99 Nasal Cannula 3 I/O 03/31/17 03/31/17 03/31/17 04/01/17 04/01/17 04/01/17 07:00 15:00 23:00 07:00 15:00 23:00 Intake Total 1010 ml 240 ml Output Total 450 ml 200 ml Balance 560 ml 40 ml Intake Oral 360 ml 240 ml IV Total 50 ml Other 600 ml Output Urine Total 300 ml 200 ml Estimated Blood Loss 50 ml Other 100 ml # Bowel Movements 0 0 Result Diagram: 04/01/17 0447 04/01/17 0447 Imaging Last 24 hours Impressions Chest X-Ray 03/30/17 0721 Signed Impressions: Service Date/Time: Thursday, March 30, 2017 07:30 - CONCLUSION: 1. Questionable nodular density within the right apex consistent with nodule or nodular infiltrate. 2. Scattered emphysematous changes bilaterally. 3. Degenerative changes and scoliosis of the thoracic spine. Cristi Aranda MD Objective Remarks right lower extremity: dressings clean and dry. intact. NVI Assessment & Plan Assessment and Plan Right intertrochanteric femur fracture s/p IMN - POD 1 -WBAT -daily dressing changes -CM for rehab placement -DVT prophylaxis -ortho cleared for DC to rehab when arrangements made -f/u Laila or NABEEL in 2 weeks John Ye/First Kina LEES Apr 01, 2017 06:38
[2017-04-01] MEDS: MEMANTINE HCL 10 MG TAB PO SCH (08:16)
[2017-04-01] MEDS: CHOLECALCIFEROL (VIT D3) 5000 UNIT CAP PO SCH (08:16)
[2017-04-01] MEDS: CITALOPRAM HYDROBROMIDE 20 MG TAB PO SCH (08:16)
[2017-04-01] MEDS: CALCIUM/VITAMIN D 250 MG/125 U TAB PO SCH ×3 (08:16→18:00)
[2017-04-01] MEDS: ENOXAPARIN SODIUM 30 MG/0.3 ML SYRINGE SQ SCH (08:16)
[2017-04-01] MEDS: SODIUM CHLORIDE 0.9% FLUSH 10 ML FLUSH IV FLUSH SCH ×2 (08:17→21:45)
[2017-04-01] MEDS: PANTOPRAZOLE SODIUM 40 MG VIAL IV PUSH SCH (08:17)
[2017-04-01] MEDS: ACETAMINOPHEN/HYDROcodone 325 MG/5 MG TAB PO PRN ×2 (08:23→14:15)
--- NOTE | 2017-04-01 11:19 | HHI.PR ---
Subjective Remarks Follow-up right hip fracture 03/31/17-patient seen and examined, she status post Reduction and intramedullary nail fixation right hip 03/31/17. Patient was seen however appear agitated and confused post surgery as she is trying to pull her IV access and surgical line. Son by the bedside 04/01/17-patient seen and examined, stealing upper extremity restraints and disrupting care. Son by the bedside. Objective Vitals Vital Signs Date Time Temp Pulse Resp B/P (MAP) Pulse Ox O2 Delivery O2 Flow Rate FiO2 04/01/17 10:09 92 Nasal Cannula 3.00 04/01/17 09:23 18 04/01/17 08:00 98.0 90 18 110/63 (79) 92 04/01/17 04:58 96.4 86 18 128/69 (88) 91 04/01/17 00:07 97.3 80 18 116/47 (70) 94 03/31/17 19:44 96.9 89 18 118/68 (85) 97 03/31/17 18:03 18 03/31/17 16:00 97.8 81 18 145/64 (91) 92 03/31/17 15:27 3.00 03/31/17 12:00 96.8 79 18 140/58 (85) 96 I/O 03/31/17 03/31/17 03/31/17 04/01/17 04/01/17 04/01/17 07:00 15:00 23:00 07:00 15:00 23:00 Intake Total 1010 ml 240 ml 240 ml Output Total 450 ml 200 ml 400 ml Balance 560 ml 40 ml -160 ml Intake Oral 360 ml 240 ml 240 ml IV Total 50 ml Other 600 ml Output Urine Total 300 ml 200 ml 400 ml Estimated Blood Loss 50 ml Other 100 ml # Bowel Movements 0 0 0 Result Diagram: 04/01/1744604/01/17446 Objective Remarks GENERAL: NAD with upper extremity restraint in place SKIN: Warm and dry. HEAD: Normocephalic. EYES: No scleral icterus. No injection or drainage. NECK: Supple, trachea midline. No JVD or lymphadenopathy. CARDIOVASCULAR: Regular rate and rhythm without murmurs, gallops, or rubs. RESPIRATORY: Breath sounds equal bilaterally. No accessory muscle use. GASTROINTESTINAL: Abdomen soft, non-tender, nondistended. MUSCULOSKELETAL: No cyanosis, or edema. Right hip repair and dressing in place , neurovascular intact BACK: Nontender without obvious deformity. No CVA tenderness. Procedures s/p Reduction and intramedullary nail fixation right hip 03/31/17 A/P Problem List: (1) Hip fracture ICD Code: S72.009A - Fracture of unspecified part of neck of unspecified femur , initial encounter for closed fracture Status: Acute (2) Alzheimer's dementia ICD Code: G30.9 - Alzheimer's disease, unspecified Assessment and Plan 87-year-old female with Right hip fracture s/p Reduction and intramedullary nail fixation right hip 03/31/17 Management per orthopedic surgery PT consult to treat and eval Pain management accordingly Secondary to current state of agitation, Alzheimer dementia Continue Namenda Continue upper extremity restraints secondary to confusion and disruption of care Anxiety Continue Celexa DVT prophylaxis: Lovenox Problem Qualifiers (1) Hip fracture: Qualified Codes: S72.001A - Fracture of unspecified part of neck of right femur , initial encounter for closed fracture Moe Chappell MD Apr 01, 2017 11:19
[2017-04-02] VITALS: BP_SYST 145; BP_SYST 151; BP_DIAS 69; BP_DIAS 86; PULSE 81; PULSE 86; RESP 16; TEMP 96.3; O2SAT 93; O2SAT 94
[2017-04-02] MEDS: SODIUM CHLOR 0.9% 1000 ML INJ 1,000 ML IV SCH (05:08)
[2017-04-02 06:00] VITALS: BP 143/68; PULSE 74; RESP 15; TEMP 97.7; O2SAT 95
--- NOTE | 2017-04-02 07:04 | PD.ORT.PN ---
Subjective Subjective Remarks [facility] and had significant pain to right hip Objective Vitals Vital Signs Date Time Temp Pulse Resp B/P (MAP) Pulse Ox O2 Delivery O2 Flow Rate FiO2 04/02/17 06:00 97.7 74 15 143/68 (93) 95 04/02/17 00:00 96.3 81 16 145/69 (94) 93 04/01/17 20:15 97.4 74 16 125/61 (82) 93 04/01/17 16:00 98.5 91 16 138/90 (106) 99 04/01/17 15:15 18 04/01/17 12:00 97.2 18 18 125/58 (80) 95 04/01/17 10:09 92 Nasal Cannula 3.00 04/01/17 08:00 98.0 90 18 110/63 (79) 92 I/O 04/01/17 04/01/17 04/01/17 04/02/17 04/02/17 04/02/17 07:00 15:00 23:00 07:00 15:00 23:00 Intake Total 240 ml 100 ml Output Total 400 ml Balance -160 ml 100 ml Intake Oral 240 ml 100 ml Output Urine Total 400 ml # Voids 0 1 # Bowel Movements 0 0 Result Diagram: 04/01/177 04/01/177 Imaging Last 24 hours Impressions Chest X-Ray 03/30/17 0721 Signed Impressions: Service Date/Time: Thursday, March 30, 2017 07:30 - CONCLUSION: 1. Questionable nodular density within the right apex consistent with nodule or nodular infiltrate. 2. Scattered emphysematous changes bilaterally. 3. Degenerative changes and scoliosis of the thoracic spine. Cristi Aranda MD Objective Remarks right lower extremity: dressings clean and dry. intact. NVI Assessment & Plan Assessment and Plan Right intertrochanteric femur fracture s/p IMN - POD 2 -WBAT -daily dressing changes -CM for rehab placement -DVT prophylaxis -ortho cleared for DC to rehab when arrangements made -f/u Laila or NABEEL in 2 weeks Nima Sanchez Jr. Apr 02, 2017 07:04
[2017-04-02] MEDS: ENOXAPARIN SODIUM 30 MG/0.3 ML SYRINGE SQ SCH (07:25)
[2017-04-02] MEDS: CALCIUM/VITAMIN D 250 MG/125 U TAB PO SCH ×3 (07:25→13:55)
[2017-04-02] MEDS: PANTOPRAZOLE SOD 40 MG DELAYED RELEASE TAB PO SCH (07:25)
[2017-04-02] MEDS: CITALOPRAM HYDROBROMIDE 20 MG TAB PO SCH (07:25)
[2017-04-02] MEDS: CHOLECALCIFEROL (VIT D3) 5000 UNIT CAP PO SCH (07:25)
[2017-04-02] MEDS: MORPHINE SULFATE 2 MG/ML INJ IV PUSH PRN ×3 (07:26→20:36)
[2017-04-02 08:00] VITALS: BP 152/73; PULSE 89; RESP 17; TEMP 96.9; O2SAT 93
[2017-04-02] MEDS: MEMANTINE HCL 10 MG TAB PO SCH (08:43)
[2017-04-02] MEDS: SODIUM CHLORIDE 0.9% FLUSH 10 ML FLUSH IV FLUSH SCH ×2 (08:43→20:40)
[2017-04-02] MEDS ORDERED: LORazepam 0.5 MG TAB PO ONE (09:15)
[2017-04-02 10:25] VITALS: O2SAT 93
--- NOTE | 2017-04-02 11:02 | HHI.PR ---
Subjective Remarks Follow-up right hip fracture 03/31/17-patient seen and examined, she status post Reduction and intramedullary nail fixation right hip 03/31/17. Patient was seen however appear agitated and confused post surgery as she is trying to pull her IV access and surgical line. Son by the bedside 04/01/17-patient seen and examined, stealing upper extremity restraints and disrupting care. Son by the bedside. 04/02/17-patient seen and examined, quite agitated this morning and confused. Patient was given Ativan 0.5mg PO x 1. Son @ bedside Objective Vitals Vital Signs Date Time Temp Pulse Resp B/P (MAP) Pulse Ox O2 Delivery O2 Flow Rate FiO2 04/02/17 10:25 93 Nasal Cannula 3.00 04/02/17 08:00 96.9 89 17 152/73 (99) 93 04/02/17 06:00 97.7 74 15 143/68 (93) 95 04/02/17 00:00 96.3 81 16 145/69 (94) 93 04/01/17 20:15 97.4 74 16 125/61 (82) 93 04/01/17 16:00 98.5 91 16 138/90 (106) 99 04/01/17 15:15 18 04/01/17 12:00 97.2 18 18 125/58 (80) 95 I/O 04/01/17 04/01/17 04/01/17 04/02/17 04/02/17 04/02/17 06:59 14:59 22:59 06:59 14:59 22:59 Intake Total 240 ml 100 ml Output Total 400 ml Balance -160 ml 100 ml Intake Oral 240 ml 100 ml Output Urine Total 400 ml # Voids 0 1 # Bowel Movements 0 0 Result Diagram: 04/01/1744604/01/17446 Objective Remarks GENERAL: NAD with upper extremity restraint in place SKIN: Warm and dry. HEAD: Normocephalic. EYES: No scleral icterus. No injection or drainage. NECK: Supple, trachea midline. No JVD or lymphadenopathy. CARDIOVASCULAR: Regular rate and rhythm without murmurs, gallops, or rubs. RESPIRATORY: Breath sounds equal bilaterally. No accessory muscle use. GASTROINTESTINAL: Abdomen soft, non-tender, nondistended. MUSCULOSKELETAL: No cyanosis, or edema. Right hip repair and dressing in place , neurovascular intact BACK: Nontender without obvious deformity. No CVA tenderness. Procedures s/p Reduction and intramedullary nail fixation right hip 03/31/17 A/P Problem List: (1) Hip fracture ICD Code: S72.009A - Fracture of unspecified part of neck of unspecified femur , initial encounter for closed fracture Status: Acute (2) Alzheimer's dementia ICD Code: G30.9 - Alzheimer's disease, unspecified Assessment and Plan 87-year-old female with Right hip fracture s/p Reduction and intramedullary nail fixation right hip 03/31/17 Management per orthopedic surgery PT to treat and eval Pain management accordingly Alzheimer dementia Continue Namenda Continue upper extremity restraints secondary to confusion and disruption of care Ativan PO 0.5mg Q12H PRN Anxiety Continue Celexa DVT prophylaxis: Lovenox Problem Qualifiers (1) Hip fracture: Qualified Codes: S72.001A - Fracture of unspecified part of neck of right femur , initial encounter for closed fracture Moe Chappell MD Apr 02, 2017 11:02
[2017-04-02 12:00] VITALS: BP 150/72; PULSE 84; RESP 18; TEMP 98.3; O2SAT 93
[2017-04-02] MEDS: ACETAMINOPHEN/HYDROcodone 325 MG/5 MG TAB PO PRN (13:55)
[2017-04-02 20:00] VITALS: BP_SYST 149; BP_SYST 156; BP_DIAS 68; BP_DIAS 77; PULSE 69; PULSE 98; RESP 15; TEMP 96.5; O2SAT 93; O2SAT 96
[2017-04-03] VITALS (8 sets, daily range): BP systolic 121–168; BP diastolic 57–74; PULSE 68–76; RESP 15–18; TEMP 96.3–97.7; O2SAT 94–98
[2017-04-03] MEDS: MORPHINE SULFATE 2 MG/ML INJ IV PUSH PRN (03:26)
[2017-04-03] MEDS: SODIUM CHLOR 0.9% 1000 ML INJ 1,000 ML IV SCH (04:57)
--- NOTE | 2017-04-03 06:46 | PD.ORT.PN ---
Subjective Subjective Remarks POD 3 s/p IMN right hip completely confused and demented. Objective Vitals Vital Signs Date Time Temp Pulse Resp B/P (MAP) Pulse Ox O2 Delivery O2 Flow Rate FiO2 04/03/17 06:00 97.7 76 15 149/60 (89) 95 04/03/17 00:00 96.3 69 15 149/68 (95) 96 04/02/17 20:00 96.5 98 15 156/77 (103) 93 04/02/17 12:00 98.3 84 18 150/72 (98) 93 04/02/17 10:25 93 Nasal Cannula 3.00 04/02/17 08:00 96.9 89 17 152/73 (99) 93 I/O 04/02/17 04/02/17 04/02/17 04/03/17 04/03/17 04/03/17 07:00 15:00 23:00 07:00 15:00 23:00 # Voids 2 Result Diagram: 04/01/17 0447 04/01/17 0447 Imaging Last 24 hours Impressions Chest X-Ray 03/30/17 0721 Signed Impressions: Service Date/Time: Thursday, March 30, 2017 07:30 - CONCLUSION: 1. Questionable nodular density within the right apex consistent with nodule or nodular infiltrate. 2. Scattered emphysematous changes bilaterally. 3. Degenerative changes and scoliosis of the thoracic spine. Cristi Aranda MD Objective Remarks right lower extremity: dressings clean and dry. intact. NVI Assessment & Plan Assessment and Plan Right intertrochanteric femur fracture s/p IMN - POD 3 -WBAT -daily dressing changes -CM for rehab placement -DVT prophylaxis -ortho cleared for DC to rehab when arrangements made -f/u Laila or NABEEL in 2 weeks John Ye/[employer] NABEEL Apr 03, 2017 06:46
[2017-04-03] MEDS: MEMANTINE HCL 10 MG TAB PO SCH (08:33)
[2017-04-03] MEDS: ACETAMINOPHEN/HYDROcodone 325 MG/5 MG TAB PO PRN (08:33)
[2017-04-03] MEDS: CHOLECALCIFEROL (VIT D3) 5000 UNIT CAP PO SCH (08:33)
[2017-04-03] MEDS: CITALOPRAM HYDROBROMIDE 20 MG TAB PO SCH (08:33)
[2017-04-03] MEDS: CALCIUM/VITAMIN D 250 MG/125 U TAB PO SCH ×3 (08:33→16:52)
[2017-04-03] MEDS: LORazepam 0.5 MG TAB PO PRN ×2 (08:33→21:17)
[2017-04-03] MEDS: PANTOPRAZOLE SOD 40 MG DELAYED RELEASE TAB PO SCH (08:33)
[2017-04-03] MEDS: ENOXAPARIN SODIUM 30 MG/0.3 ML SYRINGE SQ SCH (08:34)
[2017-04-03] MEDS: SODIUM CHLORIDE 0.9% FLUSH 10 ML FLUSH IV FLUSH SCH ×2 (08:34→21:25)
--- NOTE | 2017-04-03 13:40 | HHI.PR ---
Subjective Remarks Follow-up right hip fracture 03/31/17-patient seen and examined, she status post Reduction and intramedullary nail fixation right hip 03/31/17. Patient was seen however appear agitated and confused post surgery as she is trying to pull her IV access and surgical line. Son by the bedside 04/01/17-patient seen and examined, stealing upper extremity restraints and disrupting care. Son by the bedside. 04/02/17-patient seen and examined, quite agitated this morning and confused. Patient was given Ativan 0.5mg PO x 1. Son @ bedside 04/03/17-patient seen and examined, although she appears improved however she is still agitated and disrupting care requiring upper extremity restrain. Objective Vitals Vital Signs Date Time Temp Pulse Resp B/P (MAP) Pulse Ox O2 Delivery O2 Flow Rate FiO2 04/03/17 12:00 97.5 73 18 123/64 (83) 96 04/03/17 11:53 94 Nasal Cannula 3.00 04/03/17 07:43 96.7 73 18 168/74 (105) 94 04/03/17 06:00 97.7 76 15 149/60 (89) 95 04/03/17 00:00 96.3 69 15 149/68 (95) 96 04/02/17 20:00 96.5 98 15 156/77 (103) 93 I/O 04/02/17 04/02/17 04/02/17 04/03/17 04/03/17 04/03/17 07:00 15:00 23:00 07:00 15:00 23:00 # Voids 2 Result Diagram: 04/01/17 0447 04/01/17 0447 Objective Remarks GENERAL: NAD with upper extremity restraint in place SKIN: Warm and dry. HEAD: Normocephalic. EYES: No scleral icterus. No injection or drainage. NECK: Supple, trachea midline. No JVD or lymphadenopathy. CARDIOVASCULAR: Regular rate and rhythm without murmurs, gallops, or rubs. RESPIRATORY: Breath sounds equal bilaterally. No accessory muscle use. GASTROINTESTINAL: Abdomen soft, non-tender, nondistended. MUSCULOSKELETAL: No cyanosis, or edema. Right hip repair and dressing in place , neurovascular intact BACK: Nontender without obvious deformity. No CVA tenderness. Procedures s/p Reduction and intramedullary nail fixation right hip 03/31/17 A/P Problem List: (1) Hip fracture ICD Code: S72.009A - Fracture of unspecified part of neck of unspecified femur , initial encounter for closed fracture Status: Acute (2) Alzheimer's dementia ICD Code: G30.9 - Alzheimer's disease, unspecified Assessment and Plan 87-year-old female with Right hip fracture s/p Reduction and intramedullary nail fixation right hip 03/31/17 Management per orthopedic surgery PT to treat and eval Pain management accordingly Alzheimer dementia Continue Namenda Continue upper extremity restraints secondary to confusion and disruption of care Ativan PO 0.5mg Q12H PRN Anxiety Continue Celexa DVT prophylaxis: Lovenox Problem Qualifiers (1) Hip fracture: Qualified Codes: S72.001A - Fracture of unspecified part of neck of right femur , initial encounter for closed fracture Moe Chappell MD Apr 03, 2017 13:40
[2017-04-03] MEDS: POLYETHYLENE GLYCOL 17 GM PKG PO SCH (15:00)
[2017-04-04 00:24] VITALS: BP 124/73; PULSE 82; RESP 16; TEMP 97.9; O2SAT 97
[2017-04-04] MEDS: SODIUM CHLOR 0.9% 1000 ML INJ 1,000 ML IV SCH (04:46)
[2017-04-04 04:55] VITALS: BP 131/61; PULSE 64; RESP 16; TEMP 96.9; O2SAT 97
[2017-04-04 08:00] VITALS: BP 142/68; PULSE 63; RESP 17; TEMP 97.1; O2SAT 95
[2017-04-04] MEDS ORDERED: BISACODYL 10 MG SUPP RECTAL PRN (08:00)
[2017-04-04] MEDS: ENOXAPARIN SODIUM 30 MG/0.3 ML SYRINGE SQ SCH (08:47)
[2017-04-04] MEDS: MEMANTINE HCL 10 MG TAB PO SCH (08:47)
[2017-04-04] MEDS: CITALOPRAM HYDROBROMIDE 20 MG TAB PO SCH (08:47)
[2017-04-04] MEDS: PANTOPRAZOLE SOD 40 MG DELAYED RELEASE TAB PO SCH (08:47)
[2017-04-04] MEDS: CHOLECALCIFEROL (VIT D3) 5000 UNIT CAP PO SCH (08:47)
[2017-04-04] MEDS: POLYETHYLENE GLYCOL 17 GM PKG PO SCH (08:47)
[2017-04-04] MEDS: CALCIUM/VITAMIN D 250 MG/125 U TAB PO SCH ×2 (08:47→13:00)
[2017-04-04] MEDS: SODIUM CHLORIDE 0.9% FLUSH 10 ML FLUSH IV FLUSH SCH (09:00)
[2017-04-04 10:19] VITALS: O2SAT 95
[2017-04-04 12:00] VITALS: BP 124/65; PULSE 70; RESP 17; TEMP 97; O2SAT 98
--- NOTE | 2017-04-04 12:05 | HHI.PR ---
Subjective Remarks Follow-up right hip fracture 03/31/17-patient seen and examined, she status post Reduction and intramedullary nail fixation right hip 03/31/17. Patient was seen however appear agitated and confused post surgery as she is trying to pull her IV access and surgical line. Son by the bedside 04/01/17-patient seen and examined, stealing upper extremity restraints and disrupting care. Son by the bedside. 04/02/17-patient seen and examined, quite agitated this morning and confused. Patient was given Ativan 0.5mg PO x 1. Son @ bedside 04/03/17-patient seen and examined, although she appears improved however she is still agitated and disrupting care requiring upper extremity restrain. 1-11 PATIENT SEEN AND EXAMINED, STILL IN UE RESTRAINTS CAN GO TO SNF [facility] FAMILY AND RN AT BEDSIDE NO NEW COMPLAINTS CAN DC TO SNF IF BED IS AVAILABLE Objective Vitals Vital Signs Date Time Temp Pulse Resp B/P (MAP) Pulse Ox O2 Delivery O2 Flow Rate FiO2 04/04/17 10:19 95 Nasal Cannula 3.00 04/04/17 08:00 97.1 63 17 142/68 (92) 95 04/04/17 04:55 96.9 64 16 131/61 (84) 97 04/04/17 02:14 Nasal Cannula 3.00 04/04/17 00:24 97.9 82 16 124/73 (90) 97 04/03/17 20:50 97.7 73 16 129/57 (81) 98 04/03/17 17:42 97 Nasal Cannula 3.00 04/03/17 16:00 96.7 68 18 121/61 (81) 97 I/O 04/03/17 04/03/17 04/03/17 04/04/17 04/04/17 04/04/17 07:00 15:00 23:00 07:00 15:00 23:00 Intake Total 360 ml 240 ml 120 ml Balance 360 ml 240 ml 120 ml Intake Oral 360 ml 240 ml 120 ml # Voids 2 1 1 3 # Bowel Movements 0 0 0 1 Result Diagram: 04/01/17 0447 04/01/17 044 Imaging Last Impressions Hip X-Ray 03/31/17 0000 Signed Impressions: Service Date/Time: Friday, March 31, 2017 08:05 - CONCLUSION: Status post ORIF of right proximal femur fracture with hardware in good position. Cristi Aranda MD Chest X-Ray 03/30/17 0721 Signed Impressions: Service Date/Time: Thursday, March 30, 2017 07:30 - CONCLUSION: 1. Questionable nodular density within the right apex consistent with nodule or nodular infiltrate. 2. Scattered emphysematous changes bilaterally. 3. Degenerative changes and scoliosis of the thoracic spine. Cristi Aranda MD Lower Extremity CT 03/30/17 0000 Signed Impressions: Service Date/Time: Thursday, March 30, 2017 09:25 - CONCLUSION: Acute, mildly displaced, intratrochanteric fracture of the right proximal femur. Crisit Aranda MD Hip and Pelvis X-Ray 03/30/17 0000 Signed Impressions: Service Date/Time: Thursday, March 30, 2017 06:48 - CONCLUSION: 1. Acute intertrochanteric fracture involving right proximal femoral neck. 2. Degenerative changes and scoliosis of the lower lumbar spine. Cristi Aranda MD Objective Remarks GENERAL: AWAKE AND ALERT BUT CONFUSED- AT BASELINE SKIN: Warm and dry. HEAD: Atraumatic. Normocephalic. EYES: Pupils equal and round. No scleral icterus. No injection or drainage. EOMI ENT: No nasal bleeding or discharge. Mucous membranes pink and moist. TONGUE IS MIDLINE NECK: Trachea midline. No JVD. SUPPLE CARDIOVASCULAR: Regular rate and rhythm. S1, S2 NO S3 OR S4 RESPIRATORY: No accessory muscle use. Clear to auscultation. Breath sounds equal bilaterally. GASTROINTESTINAL: Abdomen soft, non-tender, nondistended. Hepatic and splenic margins not palpable. MUSCULOSKELETAL: Extremities without clubbing, cyanosis, or edema. No obvious deformities. HIP IS DRESSED NEUROLOGICAL: Awake and alert. No obvious cranial nerve deficits. Motor grossly within normal limits. 4 out of 5 muscle strength in the arms and legs. Normal speech. PSYCHIATRIC: INAppropriate mood and affect; insight and judgment ABnormal. PATIENT IS AT BASELINE Procedures s/p Reduction and intramedullary nail fixation right hip 03/31/17 Medications and IVs Current Medications Medications (Trade) Dose Ordered Sig/Karina Route PRN Reason Start Time Stop Time Status Last Admin Dose Admin Citalopram Hydrobromide (CeleXA) 10 mg DAILY PO 03/31/17 09:00 04/04/17 08:47 Memantine (Namenda) 10 mg DAILY PO 03/30/17 10:45 04/04/17 08:47 Sodium Chloride (NS Flush) 2 ml UNSCH PRN IV FLUSH FLUSH AFTER USING IV ACCESS 03/30/17 10:45 Sodium Chloride (NS Flush) 2 ml BID IV FLUSH 03/30/17 21:00 04/03/17 21:25 Acetaminophen (Tylenol) 650 mg Q4H PRN PO TEMP > 100.4 03/30/17 10:45 Ondansetron HCl (Zofran Inj) 4 mg Q6H PRN IVP NAUSEA OR VOMITING 03/30/17 10:45 Acetaminophen (Tylenol) 650 mg Q6H PRN PO PAIN SCALE 1 TO 2 03/30/17 10:45 Naloxone HCl (Narcan Inj) 0.4 mg UNSCH PRN IV PUSH SEE LABEL COMMENTS 03/30/17 10:45 Magnesium Hydroxide (Milk Of Maico Liq) 30 ml Q12H PRN PO Mild constipation 03/30/17 10:45 03/30/17 19:43 Albuterol/ Ipratropium (Duoneb Neb) 1 ampule Q2HR NEB PRN NEB SOB/WHEEZING 03/30/17 10:45 Enalaprilat (Vasotec Inj) 2.5 mg Q6H PRN IV PUSH SBP>160, DBP>90 03/30/17 10:45 Sodium Chloride 1,000 ml @ 42 mls/hr [id number] IV 03/31/17 05:30 03/31/17 05:30 Enoxaparin Sodium (Lovenox Inj) 30 mg Q24H SQ 04/01/17 08:00 04/04/17 08:47 Calcium/Vitamin D (Oscal-D 250-125) 250 mg TID PO 03/31/17 09:00 04/04/17 08:47 Diphenhydramine HCl (Benadryl) 25 mg Q6H PRN PO ITCHING 03/31/17 08:15 Acetaminophen/ Hydrocodone Bitart ([place] 5-325 Mg) 1 tab Q3H PRN PO pain 3<10 03/31/17 08:15 04/03/17 08:33 Morphine Sulfate (Morphine Inj) 2 mg Q3H PRN IV PUSH break thru pain 03/31/17 08:15 04/03/17 03:26 Cholecalciferol (Vitamin D3) 5,000 units DAILY PO 03/31/17 09:00 04/04/17 08:47 Pantoprazole Sodium (Protonix) 40 mg DAILY PO 04/02/17 09:00 04/04/17 08:47 Lorazepam (Ativan) 0.5 mg Q12H PRN PO agitation 04/02/17 11:00 04/03/17 21:17 Polyethylene Glycol (Miralax) 17 gm DAILY PO 04/03/17 15:00 04/04/17 08:47 Bisacodyl (Dulcolax Supp) 10 mg DAILY PRN RECTAL SEVERE CONSITIPATION 04/04/17 08:00 04/04/17 08:46 A/P Problem List: (1) Hip fracture ICD Code: S72.009A - Fracture of unspecified part of neck of unspecified femur , initial encounter for closed fracture Status: Acute (2) Alzheimer's dementia ICD Code: G30.9 - Alzheimer's disease, unspecified Assessment and Plan Assessment and Plan 87-year-old female with Right hip fracture s/p Reduction and intramedullary nail fixation right hip 03/31/17 Management per orthopedic surgery PT to treat and eval Pain management accordingly Alzheimer dementia Continue Namenda Continue upper extremity restraints secondary to confusion and disruption of care Ativan PO 0.5mg Q12H PRN KNOWN TO SNF- THEY WILL TAKE HER BACK EVEN IF IN RESTRAINTS HERE Anxiety Continue Celexa DVT prophylaxis: Erica WILKINSON RN AND PT AND FAMILY DC TO SNF TODAY Discharge Planning DC TO SNF TODAY Problem Qualifiers (1) Hip fracture: Qualified Codes: S72.001A - Fracture of unspecified part of neck of right femur , initial encounter for closed fracture Marcelino Alexandra DO Apr 04, 2017 12:05
[2017-04-04] MEDS ORDERED: LORA-392 PO (12:09)
[2017-04-04] MEDS ORDERED: Albuterol-Ipratropium Neb NEB (12:09)
[2017-04-04] MEDS ORDERED: BENA25CA4 PO (12:09)
--- NOTE | 2017-04-04 12:11 | HHI.DS ---
Discharge Summary Admission Date Mar 30, 2017 at 09:28 Discharge Date: Apr 04, 2017 Admitting Diagnosis hip fracture (1) Hip fracture ICD Code: S72.009A - Fracture of unspecified part of neck of unspecified femur , initial encounter for closed fracture Diagnosis: Principal Status: Acute (2) Alzheimer's dementia ICD Code: G30.9 - Alzheimer's disease, unspecified Diagnosis: Secondary (3) Anxiety ICD Code: F41.9 - Anxiety disorder, unspecified Diagnosis: Secondary Procedures s/p Reduction and intramedullary nail fixation right hip 03/31/17 Brief History - From Admission 87 year-old female with a history of dementia, anxiety and a resident at a local senior living facility was brought to the ED last night for evaluation of right hip pain post mechanical fall. Per EMR, the patient fell she complained of pain in her right lateral hip area. Secondary to dementia patient was unable to quantify intensity of pain, however during my exam she was grimacing and moaning every time she would turn and move her right lower extremity. Lower extremity CT reveals acute mildly displaced intratrochanteric fracture of the right proximal femur. There is no report of GI bleed and patient denies any chest pain or shortness of breath. Her son was out of bedside during this encounter. CBC/BMP: 04/01/17 0447 04/01/17 0447 Imaging Last Impressions Hip X-Ray 03/31/17 0000 Signed Impressions: Service Date/Time: Friday, March 31, 2017 08:05 - CONCLUSION: Status post ORIF of right proximal femur fracture with hardware in good position. Cristi Aranda MD Chest X-Ray 03/30/17 0721 Signed Impressions: Service Date/Time: Thursday, March 30, 2017 07:30 - CONCLUSION: 1. Questionable nodular density within the right apex consistent with nodule or nodular infiltrate. 2. Scattered emphysematous changes bilaterally. 3. Degenerative changes and scoliosis of the thoracic spine. Cristi Aranda MD Lower Extremity CT 03/30/17 0000 Signed Impressions: Service Date/Time: Thursday, March 30, 2017 09:25 - CONCLUSION: Acute, mildly displaced, intratrochanteric fracture of the right proximal femur. Cristi Aranda MD Hip and Pelvis X-Ray 03/30/17 0000 Signed Impressions: Service Date/Time: Thursday, March 30, 2017 06:48 - CONCLUSION: 1. Acute intertrochanteric fracture involving right proximal femoral neck. 2. Degenerative changes and scoliosis of the lower lumbar spine. Cristi Aranda MD PE at Discharge GENERAL: AWAKE AND ALERT BUT CONFUSED- AT BASELINE SKIN: Warm and dry. HEAD: Atraumatic. Normocephalic. EYES: Pupils equal and round. No scleral icterus. No injection or drainage. EOMI ENT: No nasal bleeding or discharge. Mucous membranes pink and moist. TONGUE IS MIDLINE NECK: Trachea midline. No JVD. SUPPLE CARDIOVASCULAR: Regular rate and rhythm. S1, S2 NO S3 OR S4 RESPIRATORY: No accessory muscle use. Clear to auscultation. Breath sounds equal bilaterally. GASTROINTESTINAL: Abdomen soft, non-tender, nondistended. Hepatic and splenic margins not palpable. MUSCULOSKELETAL: Extremities without clubbing, cyanosis, or edema. No obvious deformities. HIP IS DRESSED NEUROLOGICAL: Awake and alert. No obvious cranial nerve deficits. Motor grossly within normal limits. 4 out of 5 muscle strength in the arms and legs. Normal speech. PSYCHIATRIC: INAppropriate mood and affect; insight and judgment ABnormal. PATIENT IS AT BASELINE Hospital Course 87 year-old female with a history of dementia, anxiety and a resident at a local senior living facility was brought to the ED last night for evaluation of right hip pain post mechanical fall. Per EMR, the patient fell she complained of pain in her right lateral hip area. Secondary to dementia patient was unable to quantify intensity of pain, however during my exam she was grimacing and moaning every time she would turn and move her right lower extremity. Lower extremity CT reveals acute mildly displaced intratrochanteric fracture of the right proximal femur. There is no report of GI bleed and patient denies any chest pain or shortness of breath. Her son was out of bedside during this encounter. Follow-up right hip fracture 03/31/17-patient seen and examined, she status post Reduction and intramedullary nail fixation right hip 03/31/17. Patient was seen however appear agitated and confused post surgery as she is trying to pull her IV access and surgical line. Son by the bedside 04/01/17-patient seen and examined, stealing upper extremity restraints and disrupting care. Son by the bedside. 04/02/17-patient seen and examined, quite agitated this morning and confused. Patient was given Ativan 0.5mg PO x 1. Son @ bedside 04/03/17-patient seen and examined, although she appears improved however she is still agitated and disrupting care requiring upper extremity restrain. 1-11 PATIENT SEEN AND EXAMINED, STILL IN UE RESTRAINTS CAN GO TO SNF [facility] AND RN AT BEDSIDE NO NEW COMPLAINTS CAN DC TO SNF IF BED IS AVAILABLE Pt Condition on Discharge: Fair Discharge Disposition: Discharge to SNF Discharge Time: > 30 minutes Discharge Instructions DIET: Follow Instructions for: Heart Healthy Diet Speech Therapy-Diet Recommends: Regular Activities you can perform: Weight Bearing as Char Follow up Referrals: Orthopedics - 2 Weeks @ [facility] with Rene Ulloa MD PCP Follow-up - 3-5 Days New Medications: Calcium Carbonate-Vitamin D (Calcium 600+D 200) 600-200 Mg-Unit Tab 1 TAB PO BID for Nutritional Supplement, #90 TAB 0 Refills Ergocalciferol (Ergocalciferol) 50,000 Unit Cap 11207 UNITS PO Q7D for Nutritional Supplement, #8 CAP Hydrocodone-Acetaminophen ([facility]) 5 Mg-325 Mg Tab 1 TAB PO Q4H PRN for PAIN, #40 TAB 0 Refills Rivaroxaban (Xarelto) 10 Mg Tab 10 MG PO DAILY for Blood Clot Prevention, #14 TAB 0 Refills Diphenhydramine HCl (Benadryl Allergy) 25 Mg Cap 25 MG PO Q6H PRN for ITCHING, #120 CAP Lorazepam (Ativan) 0.5 Mg Tab 0.5 MG PO Q12H PRN for agitation, #90 TAB [Albuterol-Ipratropium Neb] () 1 AMPULE NEBU 1 AMPULE NEB Q2HR NEB PRN for SOB/WHEEZING, #120 AMPULE Continued Medications: Cholecalciferol (D3 Maximum Strength) 5,000 Unit Cap 5000 UNITS PO DAILY for Nutritional Supplement, #30 CAP 0 Refills Citalopram (Celexa) 10 Mg Tab 10 MG PO DAILY for Control Depression, #30 TAB 0 Refills Melatonin (Melatonin) 5 Mg Tab 3 MG PO HS for Provide Good Sleep, TAB 0 Refills Memantine (Memantine) 10 Mg Tab 10 MG PO DAILY for Alzheimer's Dementia, TAB 0 Refills Multiple Vitamin (Multiple Vitamin) 1 Tab 1 TAB PO DAILY for Nutritional Supplement, TAB 0 Refills [Bone Up] () DAILYMarcelino Monteiro DO Apr 04, 2017 12:11
== END 2017-04-04 15:57 | DRG 482 ==
LOC: NEPE 06:13 → NEDA 09:28 → N06B 11:39 → N06A 04-01 17:42
PROVIDERS: ADMIT Hospitalist; ATTEND Hospitalist
PROC: 0QS606Z Reposition Right Upper Femur with Intramedullary Internal Fixation Device, Open Approach (ICD-10-PCS; principal; 2017-03-31 07:21)
DX: S72.141A Displaced intertrochanteric fracture of right femur, initial encounter for closed fracture (principal); G30.9 Alzheimer's disease, unspecified; Z78.1 Physical restraint status; F02.80 Dementia in other diseases classified elsewhere, unspecified severity, without behavioral disturbance, psychotic disturbance, mood disturbance, and anxiety; M19.90 Unspecified osteoarthritis, unspecified site; F32.9 Major depressive disorder, single episode, unspecified; H91.90 Unspecified hearing loss, unspecified ear; F41.9 Anxiety disorder, unspecified; W07.XXXA Fall from chair, initial encounter; Y92.129 Unspecified place in nursing home as the place of occurrence of the external cause
CPT/HCPCS: 51702; 71045; 73502; 73700; 76000; 80048; 80053; 81001; 82306; 85025; 85610; 85730; 86850; 86900; 86901; 87086; 93005; 96374; J0690; J0696; J1100; J1580; J1650; J1885; J2270; J2370; J2405; J3010; J3370; J7030

== ENCOUNTER 2017-05-04 03:56 | Inpatient (IN) | payer MEDICARE, BC ==
[~2017-05-04] VITALS: Ht 154.9 cm; Wt 42.0 kg
[2017-05-04] VITALS (14 sets, daily range): BP systolic 120–152; BP diastolic 59–86; PULSE 74–133; RESP 16–30; TEMP 97.2–98.6; O2SAT 94–99
[~2017-05-04 03:56] MED LIST changes: +Albuterol-Ipratropium Neb NEB; +BENA25CA4 PO; +CALCTAB19 PO; +CELE10TA PO; +D 50CAP2 PO; +LORA-392 PO; +MELA5 PO; -MEMA10 PO; +MEMA1TAB2 PO; +MULTTAB67 PO; +NORC5TAB PO; +VITA500012 PO; +XARE10TA PO
--- NOTE | 2017-05-04 04:02 | PD ---
HPI Chief Complaint: hip fracture Time Seen by Provider: 04:01 Travel History International Travel<30 days: No Contact w/Intl Traveler<30days: No Traveled to known affect area: No History of Present Illness HPI 87-year-old female presents to the emergency department by EMS transport from local nursing facility where she has complained of hip pain since dinnertime. Patient reportedly is identified to have soft tissue swelling of the proximal left lower extremity with complaint of severe pain. An on-call outpatient radiology service was ordered to obtain a portable x-ray which identified a fracture at the base of the neck of the left femur with angulation. Patient was subsequently transferred after the report was made available to the emergency department. Patient was administered morphine in route to the hospital. Patient with unknown source of injury. Staff reported stating that patient had not had a fall. It is unclear as to how patient was able to sustain an angulated fracture of the femoral neck without known injury. Patient with recent hospitalization for right hip fracture status post repair PFSH Past Medical History Narrative Medical Depression arthritis Alzheimer's hysterectomy cataract surgery right hip surgery ; nursing notes reviewed Alzheimer's Disease: Yes Arthritis: Yes Depression: Yes (DEPRESSIVE EPISODES ) Cancer: No Cardiovascular Problems: No Diabetes: No Diminished Hearing: Yes Hepatitis: No Hiatal Hernia: No Hypertension: No Insomnia: Yes Respiratory: No Thyroid Disease: No Past Surgical History Eye Surgery: Yes (RIGHT EYE CATARACT SX) Gynecologic Surgery: Yes (HYSTERECTOMY) Pacemaker: No Other Surgery: Yes Social History Alcohol Use: No Tobacco Use: No Substance Use: No Allergies-Medications (Allergen,Severity, Reaction): Coded Allergies: No Known Allergies (Verified Allergy, Unknown, 05/04/17) Reported Meds & Prescriptions Reported Meds & Active Scripts Active Ativan (Lorazepam) 0.5 Mg Tab 0.5 Mg PO Q12H PRN [Albuterol-Ipratropium Neb] 1 AMPULE Nebu 1 Ampule NEB Q2HR NEB PRN Benadryl Allergy (Diphenhydramine HCl) 25 Mg Cap 25 Mg PO Q6H PRN Calcium 600+D 200 (Calcium Carbonate-Vitamin D) 600-200 Mg-Unit Tab 1 Tab PO BID Ergocalciferol 50,000 Unit Cap 50,000 Units PO Q7D Xarelto (Rivaroxaban) 10 Mg Tab 10 Mg PO DAILY [place] (Hydrocodone-Acetaminophen) 5 Mg-325 Mg Tab 1 Tab PO Q4H PRN Reported Multiple Vitamin 1 Tab 1 Tab PO DAILY Memantine 10 Mg Tab 10 Mg PO DAILY Melatonin 5 Mg Tab 3 Mg PO HS D3 Maximum Strength (Cholecalciferol) 5,000 Unit Cap 5,000 Units PO DAILY Celexa (Citalopram Hydrobromide) 10 Mg Tab 10 Mg PO DAILY [Bone Up] DAILYPRN Review of Systems ROS Limitations: Clinical Condition, Poor Historian (demntia), Other: (records from [place]) Physical Exam Narrative GENERAL: Elderly frail female in obvious discomfort GCS 13 SKIN: Warm and dry. HEAD: Normocephalic. Atraumatic no scalp soft tissue swelling tenderness or abrasion laceration identified EYES: No scleral icterus. Pupils reactive to light no injection or drainage. NECK: Supple, trachea midline. No JVD or lymphadenopathy. Unable to discern tenderness to neck with palpation but no bony step-off. CARDIOVASCULAR: Regular rate and rhythm without murmurs, gallops, or rubs. RESPIRATORY: Breath sounds equal bilaterally. No accessory muscle use. GASTROINTESTINAL: Abdomen soft, non-tender, nondistended. MUSCULOSKELETAL: No cyanosis, or edema. Left lower extremity is shortened and internally rotated with obvious proximal femur/hip soft tissue swelling and deformity no ecchymosis no abrasion no laceration distally extremities neurovascular tendon intact with brisk capillary refill less than 2 seconds and dorsalis pedis pulses 2+ to palpation but laterally as well as right lower extremity is without deformity and postoperative site is healing well without any redness induration or drainage. BACK: Nontender without obvious deformity. No CVA tenderness. Data Data Last Documented VS Vital Signs Date Time Temp Pulse Resp B/P (MAP) Pulse Ox O2 Delivery O2 Flow Rate FiO2 05/04/17 06:15 86 18 132/66 (88) 98 Room Air 05/04/17 03:57 98.3 Orders Orders Electrocardiogram (05/04/17 04:02) Complete Blood Count With Diff (05/04/17 04:02) Comprehensive Metabolic Panel (05/04/17 04:02) Prothrombin Time / Inr (Pt) (05/04/17 04:02) Act Partial Throm Time (Ptt) (05/04/17 04:02) Urinalysis - C+S If Indicated (05/04/17 04:02) Type And Screen (05/04/17 04:02) Chest, Single Ap (05/04/17 04:02) Femur (Ap & Lat/2vws) (05/04/17 04:02) Hip, Uni(Ap&Lat) W Ap Pelvis (05/04/17 04:02) Iv Access Insert/Monitor (05/04/17 04:02) Oximetry (05/04/17 04:02) Oxygen Administration (05/04/17 04:02) Ecg Monitoring (05/04/17 04:02) Sodium Chloride 0.9% Flush (Ns Flush) (05/04/17 04:15) Diet Npo (05/05/17 Breakfast) Morphine Inj (Morphine Inj) (05/04/17 04:15) Ct Brain W/O Iv Contrast(Rout) (05/04/17 ) Ct Cerv Spine W/O Contrast (05/04/17 ) Admit Order (Ed Use Only) (05/04/17 ) Superintendent Tests / Telemetry KEVIN.[id number] (05/04/17 06:30) Diet Npo (05/04/17 Breakfast) Activity Bed Rest (05/04/17 06:30) Notify Dr: Other (05/04/17 06:30) Labs Laboratory Tests Test 05/04/17 04:15 White Blood Count 9.3 TH/MM3 Red Blood Count 3.63 MIL/MM3 Hemoglobin 10.4 GM/DL Hematocrit 31.5 % Mean Corpuscular Volume 86.6 FL Mean Corpuscular Hemoglobin 28.6 PG Mean Corpuscular Hemoglobin Concent 33.1 % Red Cell Distribution Width 14.8 % Platelet Count 278 TH/MM3 Mean Platelet Volume 8.7 FL Neutrophils (%) (Auto) 82.1 % Lymphocytes (%) (Auto) 8.6 % Monocytes (%) (Auto) 9.1 % Eosinophils (%) (Auto) 0.0 % Basophils (%) (Auto) 0.2 % Neutrophils # (Auto) 7.7 TH/MM3 Lymphocytes # (Auto) 0.8 TH/MM3 Monocytes # (Auto) 0.9 TH/MM3 Eosinophils # (Auto) 0.0 TH/MM3 Basophils # (Auto) 0.0 TH/MM3 CBC Comment DIFF FINAL Differential Comment Prothrombin Time 12.4 SEC Prothromb Time International Ratio 1.2 RATIO Activated Partial Thromboplast Time 26.1 SEC Blood Urea Nitrogen 13 MG/DL Creatinine 0.80 MG/DL Random Glucose 151 MG/DL Total Protein 6.4 GM/DL Albumin 3.3 GM/DL Calcium Level 8.6 MG/DL Alkaline Phosphatase 153 U/L Aspartate Amino Transf (AST/SGOT) 14 U/L Alanine Aminotransferase (ALT/SGPT) 13 U/L Total Bilirubin 0.7 MG/DL Sodium Level 142 MEQ/L Potassium Level 4.3 MEQ/L Chloride Level 106 MEQ/L Carbon Dioxide Level 28.3 MEQ/L Anion Gap 8 MEQ/L Estimat Glomerular Filtration Rate 68 ML/MIN MDM Medical Decision Making Medical Screen Exam Complete: Yes Emergency Medical Condition: Yes Medical Record Reviewed: Yes Interpretation(s) EKG normal sinus rhythm rate [address] elevation injury pattern or ectopy noted artifact is present at baseline Last Impressions Hip and Pelvis X-Ray 05/04/17401 Signed Impressions: Service Date/Time: Thursday, May 04, 2017 04:25 - CONCLUSION: 1. Fracture proximal left femur with varus angulation. Randy Padilla MD Femur X-Ray 05/04/17401 Signed Impressions: Service Date/Time: Thursday, May 04, 2017 04:31 - CONCLUSION: 1. Fracture proximal left femur with varus angulation as above. Randy Padilla MD Chest X-Ray 05/04/17401 Signed Impressions: Service Date/Time: Thursday, May 04, 2017 04:19 - CONCLUSION: 1. No acute findings. Calcified granuloma right lung. Randy Padilla MD Head CT 05/04/17 0000 Signed Impressions: Service Date/Time: Thursday, May 04, 2017 05:10 - CONCLUSION: 1. No acute intracranial abnormalities. Randy Padilla MD Cervical Spine CT 05/04/17 0000 Signed Impressions: Service Date/Time: Thursday, May 04, 2017 05:11 - CONCLUSION: 1. No acute fracture. Severe degenerative disc disease. Randy Padilla MD CBC & BMP Diagram 05/04/17 04:15 Total Protein 6.4, Albumin 3.3 L, Calcium Level 8.6, Alkaline Phosphatase 153 H , Aspartate Amino Transf (AST/SGOT) 14 L, Alanine Aminotransferase (ALT/SGPT) 13 , Total Bilirubin 0.7 Vital Signs Date Time Temp Pulse Resp B/P (MAP) Pulse Ox O2 Delivery O2 Flow Rate FiO2 05/04/17 06:15 86 18 132/66 (88) 98 Room Air 05/04/17 04:09 Room Air 05/04/17 04:04 89 20 149/67 (94) 98 Room Air 05/04/17 03:57 98.3 115 20 152/71 (98) 99 Differential Diagnosis Hip fracture, hip dislocation, pelvic fracture, femoral shaft fracture, minor closed head injury, ICH, cervical spine sprain strain fracture, cord compression , arrhythmia, anemia, electronic disturbance Narrative Course Patient placed on school lunch monitor IV access obtained specimens collected and sent for resulting consent for imaging study bilateral dorsalis pedis pulses 2+ to palpation patient kept in position of comfort as she has been in this position for the past 10 hours; patient moaning in pain given an additional dose of morphine 2 mg IV and 2 L/min supplemental oxygen CT brain noncontrast per reading radiologist reveals no acute intracranial abnormality or skull fracture; CT cervical spine per reading radiologist degenerative changes but no fractures; pelvis/hip/femur x-ray shows no pelvic fracture shows base of left femoral neck fracture with v varus angulation. Son at bedside and is aware that patient has hip fracture proximal femur fracture in orthopedist has been consulted for operative repair; patient's case discussed with medicine service will admit patient to their service Physician Communication Physician Communication discussed with director occupational ortho Dr Guillory--will see patient; call placed to [facility] for admission --discussed with Dr Munoz Diagnosis Primary Impression: Closed left hip fracture Qualified Codes: S72.002A - Fracture of unspecified part of neck of left femur , initial encounter for closed fracture Additional Impressions: Alzheimer's dementia Anxiety Admitting Information Admitting Physician Requests: Admit Milagros Jiménez MD May 04, 2017 04:02
[2017-05-04] MEDS ORDERED: SODIUM CHLORIDE 0.9% FLUSH 10 ML FLUSH IVF PRN (04:15)
[2017-05-04] MEDS ORDERED: MORPHINE SULFATE 2 MG/ML INJ IV PUSH ONE (04:15)
[2017-05-04 04:51] LABS: AUTOMATED NEUTROPHIL # 7.7 TH/MM3 (1.8-7.7); BASOPHIL % 0.2 % (0.0-2.0); HEMATOCRIT 31.5 % (35.0-46.0); HEMOGLOBIN 10.4 GM/DL (11.6-15.3); LYMPH % 8.6 % (9.0-44.0); LYMPHOCYTE # 0.8 TH/MM3 (1.0-4.8); MEAN CELL VOLUME 86.6 FL (80.0-100.0); MEAN CORPUSCULAR HEMOGLOBIN 28.6 PG (27.0-34.0); MEAN CORPUSCULAR HGB CONC 33.1 % (32.0-36.0); MEAN PLATELET VOLUME 8.7 FL (7.0-11.0); MONO % 9.1 % (0.0-8.0); MONOCYTE # 0.9 TH/MM3 (0-0.9); NEUT % 82.1 % (16.0-70.0); PLATELET COUNT 278 TH/MM3 (150-450); RED BLOOD COUNT 3.63 MIL/MM3 (4.00-5.30); RED CELL DISTRIBUTION WIDTH 14.8 % (11.6-17.2); WHITE BLOOD COUNT 9.3 TH/MM3 (4.0-11.0)
[2017-05-04 04:53] LABS: INTERNATIONAL NORMALIZED RATIO 1.2 RATIO; PROTHROMBIN TIME - PATIENT 12.4 SEC (9.8-11.6)
[2017-05-04 04:55] LABS: ALBUMIN 3.3 GM/DL (3.4-5.0); AST (GOT) 14 U/L (15-37); BICARBONATE 28.3 MEQ/L (21.0-32.0); BLOOD UREA NITROGEN 13 MG/DL (7-18); CALCIUM 8.6 MG/DL (8.5-10.1); CHLORIDE 106 MEQ/L (98-107); GLOMERULAR FILTRATION RATE 68 ML/MIN (>89); GLUCOSE,RANDOM 151 MG/DL (74-106); SODIUM (NA) 142 MEQ/L (136-145)
[2017-05-04 04:56] LABS: ALT (GPT) 13 U/L (10-53)
[2017-05-04 04:58] LABS: ALKALINE PHOSPHATASE 153 U/L (45-117); TOTAL BILIRUBIN ADULT 0.7 MG/DL (0.2-1.0); TOTAL PROTEIN 6.4 GM/DL (6.4-8.2)
--- NOTE | 2017-05-04 04:59 | RADRPT ---
EXAM DATE/TIME: 05/04/2017 04:19 [facility] COMPARISON: CHEST SINGLE AP, March 30, 2017, 7:30. INDICATIONS : Pt fell yesterday MEDICAL HISTORY : None. SURGICAL HISTORY : None. ENCOUNTER: Initial ACUITY: 2 days PAIN SCORE: 7/10 LOCATION: Bilateral chest FINDINGS: A single view of the chest demonstrates the lungs to be symmetrically aerated without evidence of mas s, infiltrate or effusion. The cardiomediastinal contours are unremarkable. Osseous structures are intact. CONCLUSION: 1. No acute findings. Calcified granuloma right lung. Randy Padilla MD on May 04, 2017 at 4:57 Board Certified Radiologist. This report was verified electronically.
--- NOTE | 2017-05-04 05:01 | RADRPT ---
EXAM DATE/TIME: 05/04/2017 04:25 [facility] COMPARISON: No previous studies available for comparison. INDICATIONS : Pt fell yesterday- Increasing pain to left hip MEDICAL HISTORY : None. SURGICAL HISTORY : Right hip ENCOUNTER: Initial ACUITY: 2 days PAIN SCORE: 9/10 LOCATION: Left Hip FINDINGS: Examination of the left hip was performed with AP Pelvis. There is a basicervical fracture proximal l eft femur with varus angulation. No dislocation. Previous right hip fixation. CONCLUSION: 1. Fracture proximal left femur with varus angulation. Randy Padilla MD on May 04, 2017 at 4:58 Board Certified Radiologist. This report was verified electronically.
--- NOTE | 2017-05-04 05:02 | RADRPT ---
EXAM DATE/TIME: 05/04/2017 04:31 [facility] COMPARISON: No previous studies available for comparison. INDICATIONS : Pt fell yesterday- Increasing pain to Left hip MEDICAL HISTORY : None. SURGICAL HISTORY : Right hip ENCOUNTER: Initial ACUITY: 2 days PAIN SCORE: 9/10 LOCATION: Left Femur FINDINGS: There is a fracture of the base of the left femoral neck extending into the trochanteric region with varus angulation. Bones osteopenic. No other femur fractures. CONCLUSION: 1. Fracture proximal left femur with varus angulation as above. Randy Padilla MD on May 04, 2017 at 5:00 Board Certified Radiologist. This report was verified electronically.
--- NOTE | 2017-05-04 05:46 | RADRPT ---
EXAM DATE/TIME: 05/04/2017 05:10 [facility] COMPARISON: No previous studies available for comparison. INDICATIONS : Trauma; fall. RADIATION DOSE: 56.35 CTDIvol (mGy) MEDICAL HISTORY : Dementia. SURGICAL HISTORY : Hysterectomy. ENCOUNTER: Initial ACUITY: 1 day PAIN SCALE: Non-responsive LOCATION: cranial TECHNIQUE: Multiple contiguous axial images were obtained of the head. Using automated exposure control and adj ustment of the mA and/or kV according to patient size, radiation dose was kept as low as reasonably a chievable to obtain optimal diagnostic quality images. DICOM format image data is available electro nically for review and comparison. FINDINGS: CEREBRUM: The ventricles are normal for age. No evidence of midline shift, mass lesion, hemorrhage or acute in farction. No extra-axial fluid collections are seen. POSTERIOR FOSSA: The cerebellum and brainstem are intact. The 4th ventricle is midline. The cerebellopontine angle i s unremarkable. EXTRACRANIAL: The visualized portion of the orbits is intact. SKULL: The calvaria is intact. No evidence of skull fracture. CONCLUSION: 1. No acute intracranial abnormalities. Randy Padilla MD on May 04, 2017 at 5:43 Board Certified Radiologist. This report was verified electronically.
--- NOTE | 2017-05-04 05:49 | RADRPT ---
EXAM DATE/TIME: 05/04/2017 05:11 [facility] COMPARISON: No previous studies available for comparison. INDICATIONS : Trauma; fall. RADIATION DOSE: 28.16 CTDIvol (mGy) MEDICAL HISTORY : Dementia. SURGICAL HISTORY : Hysterectomy. ENCOUNTER: Initial ACUITY: 1 day PAIN SCALE: Non-responsive LOCATION: neck TECHNIQUE: Volumetric scanning of the cervical spine was performed. Multiplanar reconstructions in the sagittal, coronal and oblique axial planes were performed. Using automated exposure control and adjustment o f the mA and/or kV according to patient size, radiation dose was kept as low as reasonably achievable to obtain optimal diagnostic quality images. DICOM format image data is available electronically f or review and comparison. FINDINGS: There is no acute fracture. There is a minimal degenerative anterolisthesis of C2 on C3. Advanced deg enerative disc disease present between C3 and C7 with posterior osteophytic ridging resulting in mild multilevel AP canal stenosis and foraminal encroachment. No prevertebral soft tissue swelling. CONCLUSION: 1. No acute fracture. Severe degenerative disc disease. Randy Padilla MD on May 04, 2017 at 5:44 Board Certified Radiologist. This report was verified electronically.
[2017-05-04] MEDS ORDERED: LACTULOSE SYRUP 20 GM/30 ML CUP PO PRN (06:45)
[2017-05-04] MEDS ORDERED: MAGNESIUM HYDROXIDE SUSP 30 ML CUP PO PRN (06:45)
[2017-05-04] MEDS ORDERED: SENN1TAB PO (06:45)
[2017-05-04] MEDS ORDERED: ACETAMINOPHEN 325 MG TAB PO PRN (06:45)
[2017-05-04] MEDS ORDERED: ONDANSETRON HCL 4 MG/2 ML VIAL IVP PRN (06:45)
[2017-05-04] MEDS ORDERED: SENNOSIDES 8.6 MG TAB PO PRN (06:45)
[2017-05-04] MEDS ORDERED: BISACODYL 10 MG SUPP RECTAL PRN (06:45)
[2017-05-04] MEDS: SODIUM CHLOR 0.9% 1000 ML INJ 1,000 ML IV SCH ×2 (07:14→16:31)
--- NOTE | 2017-05-04 08:03 | PD.CONS ---
HPI Service Orthopedic Surgeons Consult Requested By Reason for Consult Left hip fracture Primary Care Physician Salvador Vásquez MD Admission Diagnosis Left hip fracture Diagnoses: Chief Complaint: Left hip fracture History of Present Illness 87-year-old female presents to the emergency department by EMS transport from local nursing facility where she has complained of hip pain since dinnertime. Patient reportedly is identified to have soft tissue swelling of the proximal left lower extremity with complaint of severe pain. Patient with unknown source of injury. Staff reported stating that patient had not had a fall. It is unclear as to how patient was able to sustain an angulated fracture of the femoral neck without known injury. Patient with recent hospitalization for right hip fracture status post repair Review of Systems ROS Limitations: Altered Mental Status (Baseline dementia. Complains of hip pain with movement but otherwise unable to fully give review of systems) Past Family Social History Allergies: Coded Allergies: No Known Allergies (Verified Allergy, Unknown, 05/04/17) Active Ordered Medications Current Medications Medications (Trade) Dose Ordered Sig/Karina Route Start Time Stop Time Status Last Admin (NS Flush) 2 ml UNSCH PRN IVF 05/04/17 04:15 Sodium Chloride 1,000 ml @ 100 mls/hr Q10H IV 05/04/17 06:31 05/04/17 07:14 (NS Flush) 2 ml UNSCH PRN IV FLUSH 05/04/17 06:45 (NS Flush) 2 ml BID IV FLUSH 05/04/17 09:00 (Zofran Inj) 4 mg Q6H PRN IVP 05/04/17 06:45 (Tylenol) 650 mg Q6H PRN PO 05/04/17 06:45 ([place] 5-325 Mg) 1 tab Q4H PRN PO 05/04/17 06:45 (Morphine Inj) 2 mg Q3H PRN IV PUSH 05/04/17 06:45 (Kristina-Colace) 1 tab BID PO 05/04/17 09:00 (Milk Of Magnesia Liq) 30 ml Q12H PRN PO 05/04/17 06:45 (Senokot) 17.2 mg Q12H PRN PO 05/04/17 06:45 (Dulcolax Supp) 10 mg DAILY PRN RECTAL 05/04/17 06:45 (Lactulose Liq) 30 ml DAILY PRN PO 05/04/17 06:45 (CeleXA) 10 mg DAILY PO 05/04/17 09:00 (Ativan) 0.5 mg Q12H PRN PO 05/04/17 06:45 (Namenda) 10 mg DAILY PO 05/04/17 09:00 (Melatonin) 5 mg HS PO 05/04/17 21:00 Reported Meds & Active Scripts Active Ativan (Lorazepam) 0.5 Mg Tab 0.5 Mg PO Q12H PRN [Albuterol-Ipratropium Neb] 1 AMPULE Nebu 1 Ampule NEB Q2HR NEB PRN Benadryl Allergy (Diphenhydramine HCl) 25 Mg Cap 25 Mg PO Q6H PRN Calcium 600+D 200 (Calcium Carbonate-Vitamin D) 600-200 Mg-Unit Tab 1 Tab PO BID Ergocalciferol 50,000 Unit Cap 50,000 Units PO Q7D Xarelto (Rivaroxaban) 10 Mg Tab 10 Mg PO DAILY [place] (Hydrocodone-Acetaminophen) 5 Mg-325 Mg Tab 1 Tab PO Q4H PRN Reported Senna-Plus (Sennosides-Docusate Sodium) 8.6-50 Mg Tab 2 Tab PO DAILY Multiple Vitamin 1 Tab 1 Tab PO DAILY Memantine 10 Mg Tab 10 Mg PO DAILY Melatonin 5 Mg Tab 3 Mg PO HS D3 Maximum Strength (Cholecalciferol) 5,000 Unit Cap 5,000 Units PO DAILY Celexa (Citalopram Hydrobromide) 10 Mg Tab 10 Mg PO DAILY [Bone Up] DAILYPRN Physical Exam Vital Signs Vital Signs Date Time Temp Pulse Resp B/P (MAP) Pulse Ox O2 Delivery O2 Flow Rate FiO2 05/04/17 06:15 86 18 132/66 (88) 98 Room Air 05/04/17 04:09 Room Air 05/04/17 04:04 89 20 149/67 (94) 98 Room Air 05/04/17 03:57 98.3 115 20 152/71 (98) 99 Physical Exam Drowsy but arousable. Appears confused. No acute distress Normocephalic Pupils equal No JVD Moist because membranes Nonlabored respirations Regular rate Soft nontender abdomen Left lower extremity: Positive logroll. Unable to assess range of motion at hip and knee due to discomfort. Patient does not follow full commands but does appear grossly neurovascularly intact. Brisk cap refill. Bilateral upper extremities and right lower extremities: No tenderness palpation or visible deformities. Appears grossly intact and moving spontaneously. Brisk cap refill. No rash Baseline dementia Laboratory Laboratory Tests Test 05/04/17 04:15 White Blood Count 9.3 Red Blood Count 3.63 Hemoglobin 10.4 Hematocrit 31.5 Mean Corpuscular Volume 86.6 Mean Corpuscular Hemoglobin 28.6 Mean Corpuscular Hemoglobin Concent 33.1 Red Cell Distribution Width 14.8 Platelet Count 278 Mean Platelet Volume 8.7 Neutrophils (%) (Auto) 82.1 Lymphocytes (%) (Auto) 8.6 Monocytes (%) (Auto) 9.1 Eosinophils (%) (Auto) 0.0 Basophils (%) (Auto) 0.2 Neutrophils # (Auto) 7.7 Lymphocytes # (Auto) 0.8 Monocytes # (Auto) 0.9 Eosinophils # (Auto) 0.0 Basophils # (Auto) 0.0 CBC Comment DIFF FINAL Differential Comment Prothrombin Time 12.4 Prothromb Time International Ratio 1.2 Activated Partial Thromboplast Time 26.1 Blood Urea Nitrogen 13 Creatinine 0.80 Random Glucose 151 Total Protein 6.4 Albumin 3.3 Calcium Level 8.6 Alkaline Phosphatase 153 Aspartate Amino Transf (AST/SGOT) 14 Alanine Aminotransferase (ALT/SGPT) 13 Total Bilirubin 0.7 Sodium Level 142 Potassium Level 4.3 Chloride Level 106 Carbon Dioxide Level 28.3 Anion Gap 8 Estimat Glomerular Filtration Rate 68 Result Diagram: 05/04/1741405/04/17414 Imaging Last 48 hours Impressions Hip and Pelvis X-Ray 05/04/17401 Signed Impressions: Service Date/Time: Thursday, May 04, 2017 04:25 - CONCLUSION: 1. Fracture proximal left femur with varus angulation. Randy Padilla MD Femur X-Ray 05/04/17401 Signed Impressions: Service Date/Time: Thursday, May 04, 2017 04:31 - CONCLUSION: 1. Fracture proximal left femur with varus angulation as above. Randy Padilla MD Chest X-Ray 05/04/17401 Signed Impressions: Service Date/Time: Thursday, May 04, 2017 04:19 - CONCLUSION: 1. No acute findings. Calcified granuloma right lung. Randy Padilla MD Head CT 05/04/17 Signed Impressions: Service Date/Time: Thursday, May 04, 2017 05:10 - CONCLUSION: 1. No acute intracranial abnormalities. Randy Padilla MD Cervical Spine CT 05/04/17 Signed Impressions: Service Date/Time: Thursday, May 04, 2017 05:11 - CONCLUSION: 1. No acute fracture. Severe degenerative disc disease. Randy Padilla MD Assessment & Plan Assessment and Plan 87-year-old female with multiple medical problems and baseline dementia who presents from nursing facility without reported fall with left proximal femur fracture Options of management were discussed with the patient and her son. Recommendation of intramedullary nail of her left femur fracture. Risks, benefits, alternatives were discussed with the patient and her son. Risks of surgery including but not limited to: Infection, nonunion or malunion, hardware malposition or failure, or vascular injury, possible need for further surgery, and other unforeseen complications were all discussed with the patient. At this time her son has consented to the procedure. We'll plan for surgery once patient is optimized medically, possibly later today. Nothing by mouth at this time. Dania Guillory MD May 04, 2017 08:03
--- NOTE | 2017-05-04 08:04 | HHI.HP ---
[facility] Salvador [facility] MD Admission Diagnosis Left hip fracture Diagnoses: Chief Complaint: Left Hip Fracture Travel History International Travel<30 Days: No Contact w/Intl Traveler <30 Da: No Traveled to Known Affected Are: No History of Present Illness This is a pleasant 87 y/o Female who came to ER brought in by EMS from local nursing facility, where she complaint of hip pain since dinnertime. Patient reportedly is identified to have soft tissue swelling of the proximal left lower extremity with complaint of severe pain. An on-call outpatient radiology service was ordered to obtain a portable x-ray which identified a fracture at the base of the neck of the left femur with angulation. Patient was subsequently transferred after the report was made available to the emergency department. Patient was administered morphine in route to the hospital. Patient with unknown source of injury. Staff reported stating that patient had not had a fall. It is unclear as to how patient was able to sustain an angulated fracture of the femoral neck without known injury. Patient with recent hospitalization for right hip fracture status post repair she had recent admission due to a fall with Right hip pain, had Intratrochanteric fracture of the Right proximal femur. Seen in her bedroom, still somnolent, will continue IV fluids and she will have procedure later today, already discussed by Orthopedic surgery tech with her Son. History taken from records. Review of Systems Constitutional: DENIES: Fever, Chills, Change in appetite Endocrine: DENIES: Heat/cold intolerance Eyes: DENIES: Blurred vision, Eye pain Musculoskeletal: COMPLAINS OF: Joint pain Except as stated in HPI: all other systems reviewed are Neg Past Family Social History Past Medical History Depression OA Alzheimer's Disease Dysphagia by history Past Surgical History JAGDISH Cataract surgery Right total hip arthroplasty Reported Medications Reported Meds & Active Scripts Active Ativan (Lorazepam) 0.5 Mg Tab 0.5 Mg PO Q12H PRN [Albuterol-Ipratropium Neb] 1 AMPULE Nebu 1 Ampule NEB Q2HR NEB PRN Benadryl Allergy (Diphenhydramine HCl) 25 Mg Cap 25 Mg PO Q6H PRN Calcium 600+D 200 (Calcium Carbonate-Vitamin D) 600-200 Mg-Unit Tab 1 Tab PO BID Ergocalciferol 50,000 Unit Cap 50,000 Units PO Q7D Xarelto (Rivaroxaban) 10 Mg Tab 10 Mg PO DAILY [place] (Hydrocodone-Acetaminophen) 5 Mg-325 Mg Tab 1 Tab PO Q4H PRN Reported Senna-Plus (Sennosides-Docusate Sodium) 8.6-50 Mg Tab 2 Tab PO DAILY Multiple Vitamin 1 Tab 1 Tab PO DAILY Memantine 10 Mg Tab 10 Mg PO DAILY Melatonin 5 Mg Tab 3 Mg PO HS D3 Maximum Strength (Cholecalciferol) 5,000 Unit Cap 5,000 Units PO DAILY Celexa (Citalopram Hydrobromide) 10 Mg Tab 10 Mg PO DAILY [Bone Up] DAILYPRN Allergies: Coded Allergies: No Known Allergies (Verified Allergy, Unknown, 05/04/17) Active Ordered Medications Current Medications Medications (Trade) Dose Ordered Sig/Karina Route Start Time Stop Time Status Last Admin (NS Flush) 2 ml UNSCH PRN IVF 05/04/17 04:15 Sodium Chloride 1,000 ml @ 100 mls/hr Q10H IV 05/04/17 06:31 05/04/17 07:14 (NS Flush) 2 ml UNSCH PRN IV FLUSH 05/04/17 06:45 (NS Flush) 2 ml BID IV FLUSH 05/04/17 09:00 (Zofran Inj) 4 mg Q6H PRN IVP 05/04/17 06:45 (Tylenol) 650 mg Q6H PRN PO 05/04/17 06:45 ([place] 5-325 Mg) 1 tab Q4H PRN PO 05/04/17 06:45 (Morphine Inj) 2 mg Q3H PRN IV PUSH 05/04/17 06:45 (Kristina-Colace) 1 tab BID PO 05/04/17 09:00 (Milk Of Magnesia Liq) 30 ml Q12H PRN PO 05/04/17 06:45 (Senokot) 17.2 mg Q12H PRN PO 05/04/17 06:45 (Dulcolax Supp) 10 mg DAILY PRN RECTAL 05/04/17 06:45 (Lactulose Liq) 30 ml DAILY PRN PO 05/04/17 06:45 (CeleXA) 10 mg DAILY PO 05/04/17 09:00 (Ativan) 0.5 mg Q12H PRN PO 05/04/17 06:45 (Namenda) 10 mg DAILY PO 05/04/17 09:00 (Melatonin) 5 mg HS PO 05/04/17 21:00 Family History Asked and difficult to obtain information about this Social History Denies any toxic habits. Lives in a [facility] Physical Exam Vital Signs Vital Signs Date Time Temp Pulse Resp B/P (MAP) Pulse Ox O2 Delivery O2 Flow Rate FiO2 05/04/17 06:15 86 18 132/66 (88) 98 Room Air 05/04/17 04:09 Room Air 05/04/17 04:04 89 20 149/67 (94) 98 Room Air 05/04/17 03:57 98.3 115 20 152/71 (98) 99 Physical Exam GENERAL: Elderly frail female somnolent. SKIN: Warm and dry. HEAD: Normocephalic. Atraumatic EYES: No scleral icterus. Pupils reactive to light no injection or drainage. NECK: Supple, trachea midline. No JVD or lymphadenopathy. Unable to discern tenderness to neck with palpation but no bony step-off. CARDIOVASCULAR: Regular rate and rhythm without murmurs, gallops, or rubs. RESPIRATORY: Breath sounds equal bilaterally. No accessory muscle use. GASTROINTESTINAL: Abdomen soft, non-tender, nondistended. MUSCULOSKELETAL: Left lower extremity is shortened and internally rotated with obvious proximal femur/hip soft tissue swelling and deformity. BACK: Nontender without obvious deformity. No CVA tenderness. Laboratory Laboratory Tests Test 05/04/17 04:15 White Blood Count 9.3 Red Blood Count 3.63 Hemoglobin 10.4 Hematocrit 31.5 Mean Corpuscular Volume 86.6 Mean Corpuscular Hemoglobin 28.6 Mean Corpuscular Hemoglobin Concent 33.1 Red Cell Distribution Width 14.8 Platelet Count 278 Mean Platelet Volume 8.7 Neutrophils (%) (Auto) 82.1 Lymphocytes (%) (Auto) 8.6 Monocytes (%) (Auto) 9.1 Eosinophils (%) (Auto) 0.0 Basophils (%) (Auto) 0.2 Neutrophils # (Auto) 7.7 Lymphocytes # (Auto) 0.8 Monocytes # (Auto) 0.9 Eosinophils # (Auto) 0.0 Basophils # (Auto) 0.0 CBC Comment DIFF FINAL Differential Comment Prothrombin Time 12.4 Prothromb Time International Ratio 1.2 Activated Partial Thromboplast Time 26.1 Blood Urea Nitrogen 13 Creatinine 0.80 Random Glucose 151 Total Protein 6.4 Albumin 3.3 Calcium Level 8.6 Alkaline Phosphatase 153 Aspartate Amino Transf (AST/SGOT) 14 Alanine Aminotransferase (ALT/SGPT) 13 Total Bilirubin 0.7 Sodium Level 142 Potassium Level 4.3 Chloride Level 106 Carbon Dioxide Level 28.3 Anion Gap 8 Estimat Glomerular Filtration Rate 68 Result Diagram: 05/04/1741405/04/17414 Imaging Last Impressions Hip and Pelvis X-Ray 05/04/17401 Signed Impressions: Service Date/Time: Thursday, May 04, 2017 04:25 - CONCLUSION: 1. Fracture proximal left femur with varus angulation. Randy Padilla MD Femur X-Ray 05/04/17401 Signed Impressions: Service Date/Time: Thursday, May 04, 2017 04:31 - CONCLUSION: 1. Fracture proximal left femur with varus angulation as above. Randy Padilla MD Chest X-Ray 05/04/17401 Signed Impressions: Service Date/Time: Thursday, May 04, 2017 04:19 - CONCLUSION: 1. No acute findings. Calcified granuloma right lung. Randy Padilla MD Head CT 05/04/17 Signed Impressions: Service Date/Time: Thursday, May 04, 2017 05:10 - CONCLUSION: 1. No acute intracranial abnormalities. Randy Padilla MD Cervical Spine CT 05/04/17 Signed Impressions: Service Date/Time: Thursday, May 04, 2017 05:11 - CONCLUSION: 1. No acute fracture. Severe degenerative disc disease. Randy Padilla MD Caprini VTE Risk Assessment Caprini VTE Risk Assessment: Mod/High Risk (score >= 2) Caprini Risk Assessment Model Point Value = 1 Point Value = 2 Point Value = 3 Point Value = 5 Age 41-60 Minor surgery BMI > 25 kg/m2 Swollen legs Varicose veins or History of unexplained or recurrent spontaneous Oral contraceptives or hormone replacement Sepsis (< 1 month) Serious lung disease, including pneumonia (< 1 month) Abnormal pulmonary function Acute myocardial infarction Congestive heart failure (< 1 month) History of inflammatory bowel disease Medical patient at bed rest Age 61-74 Arthroscopic surgery Major open surgery (> 45 min) Laparoscopic surgery (> 45 min) Malignancy Confined to bed (> 72 hours) Immobilizing plaster cast Central venous access Age >= 75 History of VTE Family history of VTE Factor V Leiden Prothrombin [id number] Lupus anticoagulant Anticardiolipin antibodies Elevated serum homocysteine Heparin-induced thrombocytopenia Other congenital or acquired thrombophilia Stroke (< 1 month) Elective arthroplasty Hip, pelvis, or leg fracture Acute spinal cord injury (< 1 month) Prophylaxis Regimen Total Risk Factor Score Risk Level Prophylaxis Regimen 0-1 Low Early ambulation 2 Moderate Order ONE of the following: *Sequential Compression Device (SCD) *Heparin 5000 units SQ BID 3-4 Higher Order ONE of the following medications: *Heparin 5000 units SQ TID *Enoxaparin/Lovenox 40 mg SQ daily (WT < 150 kg, CrCl > 30 mL/min) *Enoxaparin/Lovenox 30 mg SQ daily (WT < 150 kg, CrCl > 10-29 mL/min) *Enoxaparin/Lovenox 30 mg SQ BID (WT < 150 kg, CrCl > 30 mL/min) AND/OR *Sequential Compression Device (SCD) 5 or more Highest Order ONE of the following medications: *Heparin 5000 units SQ TID (Preferred with Epidurals) *Enoxaparin/Lovenox 40 mg SQ daily (WT < 150 kg, CrCl > 30 mL/min) *Enoxaparin/Lovenox 30 mg SQ daily (WT < 150 kg, CrCl > 10-29 mL/min) *Enoxaparin/Lovenox 30 mg SQ BID (WT < 150 kg, CrCl > 30 mL/min) AND *Sequential Compression Device (SCD) Assessment and Plan Assessment and Plan 1. Left Proximal Femur fracture/Closed left hip fracture seen by Orthopedic Surgery doctor Dania Guillory who recommended Intramedullary nail of her left femur fracture, EKG normal sinus rhythm rate [address] elevation injury pattern or ectopy noted artifact is present at baseline hemoglobin 10.4 on admission, CT brain noncontrast per reading radiologist reveals no acute intracranial abnormality or skull fracture CT cervical spine per reading radiologist degenerative changes but no fractures; pelvis/hip/femur x-ray shows no pelvic fracture shows base of left femoral neck fracture with v varus angulation. Awaiting for Procedure later today, she has low risk for this non Cardiac surgical procedure. 2. Alzheimer dementia Resume Namenda 3. 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 Babatunde Garg to the number [phone] and no answer. Follow laboratory in am tomorrow. Code Status Full code. Physician Certification 2 Midnight Certification Type: Admission for Inpatient Services Order for Inpatient Services The services are ordered in accordance with Medicare regulations or non- Medicare payer requirements, as applicable. In the case of services not specified as inpatient-only, they are appropriately provided as inpatient services in accordance with the 2-midnight benchmark. Estimated LOS (days): 3 days is the estimated time the patient will need to remain in the hospital, assuming treatment plan goals are met and no additional complications. Post-Hospital Plan: SNF Edmundo Rodriges MD May 04, 2017 08:04
[2017-05-04] MEDS: DOCUSATE SODIUM 50 MG/SENNA 8.6 MG TAB PO SCH ×2 (09:00→22:00)
[2017-05-04] MEDS: MEMANTINE HCL 10 MG TAB PO SCH (11:04)
[2017-05-04] MEDS: CITALOPRAM HYDROBROMIDE 20 MG TAB PO SCH (11:04)
[2017-05-04] MEDS: MORPHINE SULFATE 2 MG/ML INJ IV PUSH PRN ×2 (11:05→22:44)
[2017-05-04] MEDS: SODIUM CHLORIDE 0.9% FLUSH 10 ML FLUSH IV FLUSH SCH ×3 (11:06→21:59)
[2017-05-04] MEDS ORDERED: LIDOCAINE HCL 1% PF 5 ML SYRINGE OTHER ONE (12:00)
[2017-05-04] MEDS ORDERED: ePHEDrine/NS 25 MG/5 ML SYRINGE IV ONE (12:00)
[2017-05-04] MEDS ORDERED: ONDANSETRON HCL 4 MG/2 ML VIAL IV ONE (12:00)
[2017-05-04] MEDS ORDERED: PHENYLEPH/NS 1000 MCG/10 ML SYR IV ONE (12:00)
[2017-05-04] MEDS ORDERED: PROPOFOL 200 MG/20 ML AMP IV ONE (12:00)
[2017-05-04] MEDS ORDERED: DEXAMETHASONE SOD PHOS 4 MG/ML VIAL IV ONE (12:00)
[2017-05-04] MEDS ORDERED: SODIUM CHLOR 0.9% 250 ML INJ 250 ML IV ONE (12:00)
[2017-05-04] MEDS ORDERED: ARTIFICIAL TEARS OPTH OINT 3.5 APPLIC/3.5 GM TUBO ONE (13:52)
[2017-05-04] MEDS ORDERED: ACETAMINOPHEN 1000 MG/100 ML 100 ML IV ONE (13:52)
[2017-05-04] MEDS ORDERED: VANCOMYCIN 500 MG VIAL ONE (14:07)
[2017-05-04] MEDS ORDERED: GENTAMICIN SULFATE 80 MG/2 ML VIAL ONE (14:08)
[2017-05-04] MEDS ORDERED: SODIUM CHLOR 0.9% 250 ML INJ 250 ML ONE (14:08)
[2017-05-04] MEDS ORDERED: ceFAZolin INJ 1,000 MG VIAL ONE (14:08)
--- NOTE | 2017-05-04 15:53 | HHI.PR ---
cc: Dania Guillory MD Immediate Post Op Note Procedure Date: May 04, 2017 Pre Op Diagnosis: Closed left basicervical femur fracture Post Op Diagnosis: Same Surgeon: Dania Guillory Client Support Administrator(s): None Procedure: Intramedullary nail left basicervical femur fracture Complications: None Specimen(s) removed: None Estimated blood loss: 100 cc Anesthesia: General Drains: None IVF Patient to: PACU Patient Condition: Good Implant/Devices: SEE IMPLANT LOG (if applicable) Date/Time of Procedure: SEE SURGICAL CARE RECORD Dania Guillory MD May 04, 2017 15:53
[2017-05-04] MEDS ORDERED: SODIUM CHLORIDE 0.9% FLUSH 10 ML FLUSH IV FLUSH PRN (16:00)
[2017-05-04] MEDS ORDERED: Post-op Orders (for Pharmacy) XX ONE (16:00)
[2017-05-04] MEDS ORDERED: DO NOT ADM ANY ANTICOAGULANT DRUGS PRN (17:00)
--- NOTE | 2017-05-04 17:48 | RADRPT ---
EXAM DATE/TIME: 05/04/2017 15:37 [facility] COMPARISON: No previous studies available for comparison. INDICATIONS : Left hip fracture. Post op. Troch nail. MEDICAL HISTORY : None. SURGICAL HISTORY : Right hip. ENCOUNTER: Initial ACUITY: 1 day PAIN SCORE: Non-responsive. LOCATION: Left hip. FINDINGS: 3 images recorded digitally in the operating room using C-arm during placement of a intramedullary ro d and trochanteric nail across the proximal femoral fracture. CONCLUSION: Intraoperative images. Chon Calix MD on May 04, 2017 at 17:45 Board Certified Radiologist. This report was verified electronically.
[2017-05-04 18:17] LABS: BACTERIA, URINE RARE /hpf; BILIRUBIN, URINE NEG (NEG); BLOOD, URINE NEG (NEG); GLUCOSE,URINE NEG (NEG); KETONE, URINE NEG (NEG); MUCUS URINE FEW /lpf (OCC); NITRITE,URINE NEG (NEG); PH, URINE 5.5 (5.0-8.5); SQUAMOUS EPITHELIAL CELL URINE <1 /hpf (0-5); URINE COLOR LIGHT-YELLOW (YELLW/STRAW); URINE LEUKOCYTE ESTERASE NEG (NEG)
[2017-05-04] MEDS ORDERED: MELATONIN 5 MG TAB PO SCH (21:00)
[2017-05-04] MEDS: MELATONIN 5 MG TAB PO SCH (22:00)
[2017-05-04] MEDS: LORazepam 0.5 MG TAB PO PRN (23:39)
[2017-05-05] VITALS (14 sets, daily range): BP systolic 116–160; BP diastolic 56–72; PULSE 67–119; RESP 16–20; TEMP 97–99.4; O2SAT 93–97
[2017-05-05] MEDS: SODIUM CHLOR 0.9% 1000 ML INJ 1,000 ML IV SCH ×3 (02:31→22:31)
[2017-05-05] MEDS: SODIUM CHLORIDE 0.9% FLUSH 10 ML FLUSH IV FLUSH PRN ×2 (02:37→07:03)
[2017-05-05] MEDS: MORPHINE SULFATE 2 MG/ML INJ IV PUSH PRN ×2 (02:37→07:03)
[2017-05-05] MEDS: ENOXAPARIN SODIUM 40 MG/0.4 ML SYRINGE SQ SCH (04:01)
[2017-05-05 07:44] LABS: AUTOMATED NEUTROPHIL # 7.5 TH/MM3 (1.8-7.7); BASOPHIL % 0.3 % (0.0-2.0); HEMATOCRIT 24.4 % (35.0-46.0); HEMOGLOBIN 8.1 GM/DL (11.6-15.3); LYMPH % 13.8 % (9.0-44.0); LYMPHOCYTE # 1.4 TH/MM3 (1.0-4.8); MEAN CORPUSCULAR HEMOGLOBIN 29.2 PG (27.0-34.0); MEAN CORPUSCULAR HGB CONC 33.1 % (32.0-36.0); MEAN PLATELET VOLUME 8.9 FL (7.0-11.0); MONO % 13.6 % (0.0-8.0); MONOCYTE # 1.4 TH/MM3 (0-0.9); NEUT % 72.3 % (16.0-70.0); PLATELET COUNT 278 TH/MM3 (150-450); RED BLOOD COUNT 2.77 MIL/MM3 (4.00-5.30); RED CELL DISTRIBUTION WIDTH 15.1 % (11.6-17.2); WHITE BLOOD COUNT 10.4 TH/MM3 (4.0-11.0)
[2017-05-05 08:05] LABS: ALBUMIN 2.9 GM/DL (3.4-5.0); AST (GOT) 25 U/L (15-37); BLOOD UREA NITROGEN 9 MG/DL (7-18); CALCIUM 8.4 MG/DL (8.5-10.1); CHLORIDE 111 MEQ/L (98-107); CREATININE 0.58 MG/DL (0.50-1.00); GLOMERULAR FILTRATION RATE 99 ML/MIN (>89); GLUCOSE,RANDOM 106 MG/DL (74-106); MAGNESIUM 1.8 MG/DL (1.5-2.5); SODIUM (NA) 144 MEQ/L (136-145)
[2017-05-05 08:08] LABS: ALKALINE PHOSPHATASE 126 U/L (45-117); ALT (GPT) 14 U/L (10-53); PHOSPHORUS 2.4 MG/DL (2.5-4.9); TOTAL BILIRUBIN ADULT 0.6 MG/DL (0.2-1.0)
[2017-05-05] MEDS: SODIUM CHLORIDE 0.9% FLUSH 10 ML FLUSH IV FLUSH SCH ×4 (09:00→21:00)
--- NOTE | 2017-05-05 09:20 | EKG ---
Date Performed: 05/04/2017 Time Performed: 04:00:06 PTAGE: 87 years EKG: Sinus rhythm BASELINE ARTIFACT PREVIOUS TRACING : 03/30/2017 08.04 Since the prior tracing, there has been no significan t change DOCTOR: Reese Richard Interpretating Date/Time 05/05/2017 09:19:59
[2017-05-05] MEDS: MEMANTINE HCL 10 MG TAB PO SCH (09:49)
[2017-05-05] MEDS: DOCUSATE SODIUM 50 MG/SENNA 8.6 MG TAB PO SCH ×2 (09:49→21:00)
[2017-05-05] MEDS: ACETAMINOPHEN/HYDROcodone 325 MG/5 MG TAB PO PRN ×3 (09:49→21:42)
[2017-05-05] MEDS: CITALOPRAM HYDROBROMIDE 20 MG TAB PO SCH (09:49)
[2017-05-05] MEDS: LORazepam 0.5 MG TAB PO PRN (10:36)
--- NOTE | 2017-05-05 12:12 | HHI.PR ---
Objective Vitals Vital Signs Date Time Temp Pulse Resp B/P (MAP) Pulse Ox O2 Delivery O2 Flow Rate FiO2 05/05/17 12:00 97.8 97 18 124/57 (79) 95 05/05/17 10:54 93 05/05/17 08:15 105 05/05/17 07:36 99.4 110 20 160/72 (101) 97 05/05/17 03:35 97.6 94 19 129/60 (83) 96 05/05/17 00:00 119 05/04/17 22:58 97.5 133 30 138/74 (95) 97 05/04/17 21:59 Nasal Cannula 2.00 05/04/17 19:49 97.8 76 17 120/59 (79) 99 05/04/17 19:47 74 05/04/17 18:13 75 05/04/17 17:05 Nasal Cannula 2.00 05/04/17 17:05 90 05/04/17 16:59 97.2 95 16 144/71 (95) 97 05/04/17 16:45 97.2 95 12 145/68 (93) 100 Nasal Cannula 2 05/04/17 16:30 99 12 144/68 (93) 98 Nasal Cannula 2 05/04/17 16:15 96 12 143/67 (92) 100 Nasal Cannula 2 05/04/17 16:09 97.2 95 12 137/65 (89) 93 Nasal Cannula 2 05/04/17 12:15 87 I/O 05/04/17 05/04/17 05/04/17 05/05/17 05/05/17 05/05/17 07:00 15:00 23:00 07:00 15:00 23:00 Intake Total 0 ml 1220 ml Output Total 300 ml 750 ml 175 ml Balance -300 ml 470 ml -175 ml Intake Oral 0 ml 120 ml Other 1100 ml Output Urine Total 300 ml 650 ml 175 ml Estimated Blood Loss 100 ml # Voids 0 # Bowel Movements 0 0 0 Result Diagram: 05/05/1763905/05/17639 Destinee Dial MD May 05, 2017 12:12
--- NOTE | 2017-05-05 12:15 | HHI.PR ---
Subjective Remarks In bed, son at bedside. Per son she is not eating much and would like some appetite enhancer. Patient is with dementia at baseline. Noted agitated on/off at times. Denies any pain at this time. No fever or chills. Discussed with the son and says she has a DNR . place order DNR Objective Vitals Vital Signs Date Time Temp Pulse Resp B/P (MAP) Pulse Ox O2 Delivery O2 Flow Rate FiO2 05/05/17 12:00 97.8 97 18 124/57 (79) 95 05/05/17 10:54 93 05/05/17 08:15 105 05/05/17 07:36 99.4 110 20 160/72 (101) 97 05/05/17 03:35 97.6 94 19 129/60 (83) 96 05/05/17 00:00 119 05/04/17 22:58 97.5 133 30 138/74 (95) 97 05/04/17 21:59 Nasal Cannula 2.00 05/04/17 19:49 97.8 76 17 120/59 (79) 99 05/04/17 19:47 74 05/04/17 18:13 75 05/04/17 17:05 Nasal Cannula 2.00 05/04/17 17:05 90 05/04/17 16:59 97.2 95 16 144/71 (95) 97 05/04/17 16:45 97.2 95 12 145/68 (93) 100 Nasal Cannula 2 05/04/17 16:30 99 12 144/68 (93) 98 Nasal Cannula 2 05/04/17 16:15 96 12 143/67 (92) 100 Nasal Cannula 2 05/04/17 16:09 97.2 95 12 137/65 (89) 93 Nasal Cannula 2 05/04/17 12:15 87 I/O 05/04/17 05/04/17 05/04/17 05/05/17 05/05/17 05/05/17 07:00 15:00 23:00 07:00 15:00 23:00 Intake Total 0 ml 1220 ml Output Total 300 ml 750 ml 175 ml Balance -300 ml 470 ml -175 ml Intake Oral 0 ml 120 ml Other 1100 ml Output Urine Total 300 ml 650 ml 175 ml Estimated Blood Loss 100 ml # Voids 0 # Bowel Movements 0 0 0 Result Diagram: 05/05/17 0640 05/05/17 0640 Imaging Last Impressions Hip and Pelvis X-Ray 05/04/17401 Signed Impressions: Service Date/Time: Thursday, May 04, 2017 04:25 - CONCLUSION: 1. Fracture proximal left femur with varus angulation. Randy Padilla MD Femur X-Ray 05/04/17401 Signed Impressions: Service Date/Time: Thursday, May 04, 2017 04:31 - CONCLUSION: 1. Fracture proximal left femur with varus angulation as above. Randy Padilla MD Chest X-Ray 05/04/17401 Signed Impressions: Service Date/Time: Thursday, May 04, 2017 04:19 - CONCLUSION: 1. No acute findings. Calcified granuloma right lung. Randy Padilla MD Hip X-Ray 05/04/17 0000 Signed Impressions: Service Date/Time: Thursday, May 04, 2017 15:37 - CONCLUSION: Intraoperative images. Chon Calix MD Head CT 05/04/17 0000 Signed Impressions: Service Date/Time: Thursday, May 04, 2017 05:10 - CONCLUSION: 1. No acute intracranial abnormalities. Randy Padilla MD Cervical Spine CT 05/04/17 0000 Signed Impressions: Service Date/Time: Thursday, May 04, 2017 05:11 - CONCLUSION: 1. No acute fracture. Severe degenerative disc disease. Randy Padilla MD Objective Remarks GENERAL: Elderly frail female appears in nad. CARDIOVASCULAR: Regular rate and rhythm without murmurs, gallops, or rubs. RESPIRATORY: Breath sounds equal bilaterally. No accessory muscle use. GASTROINTESTINAL: Abdomen soft, non-tender, nondistended. MUSCULOSKELETAL: Left hip s/p surgery no hematoma noted, dressing c/d/i. BACK: Nontender without obvious deformity. No CVA tenderness. A/P Assessment and Plan Left Proximal Femur fracture/Closed left hip fracture seen by Orthopedic Surgery doctor Dania Guillory S/P Intramedullary nail of her left femur fracture EKG normal sinus rhythm rate [address] elevation injury pattern or ectopy noted artifact is present at baseline hemoglobin 10.4 on admission. H/H stable post op CT brain noncontrast per reading radiologist reveals no acute intracranial abnormality or skull fracture CT cervical spine per reading radiologist degenerative changes but no fractures; pelvis/hip/femur x-ray shows no pelvic fracture shows base of left femoral neck fracture with v varus angulation. 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 Babatunde Garg to the number [phone] Follow laboratory in am tomorrow. Code Status DNR Discussed with the patient, nurse, son at bedside Destinee Dial MD May 05, 2017 12:15
--- NOTE | 2017-05-05 12:46 | PD.ORT.PN ---
Subjective Subjective Remarks Patient resting comfortably. Baseline dementia. Objective Vitals Vital Signs Date Time Temp Pulse Resp B/P (MAP) Pulse Ox O2 Delivery O2 Flow Rate FiO2 05/05/17 12:00 97.8 97 18 124/57 (79) 95 05/05/17 10:54 93 05/05/17 08:15 105 05/05/17 07:36 99.4 110 20 160/72 (101) 97 05/05/17 03:35 97.6 94 19 129/60 (83) 96 05/05/17 00:00 119 05/04/17 22:58 97.5 133 30 138/74 (95) 97 05/04/17 21:59 Nasal Cannula 2.00 05/04/17 19:49 97.8 76 17 120/59 (79) 99 05/04/17 19:47 74 05/04/17 18:13 75 05/04/17 17:05 Nasal Cannula 2.00 05/04/17 17:05 90 05/04/17 16:59 97.2 95 16 144/71 (95) 97 05/04/17 16:45 97.2 95 12 145/68 (93) 100 Nasal Cannula 2 05/04/17 16:30 99 12 144/68 (93) 98 Nasal Cannula 2 05/04/17 16:15 96 12 143/67 (92) 100 Nasal Cannula 2 05/04/17 16:09 97.2 95 12 137/65 (89) 93 Nasal Cannula 2 I/O 05/04/17 05/04/17 05/04/17 05/05/17 05/05/17 05/05/17 07:00 15:00 23:00 07:00 15:00 23:00 Intake Total 0 ml 1220 ml 790 ml Output Total 300 ml 750 ml 175 ml Balance -300 ml 470 ml -175 ml 790 ml Intake Oral 0 ml 120 ml IV Total 790 ml Other 1100 ml Output Urine Total 300 ml 650 ml 175 ml Estimated Blood Loss 100 ml # Voids 0 # Bowel Movements 0 0 0 Result Diagram: 05/05/17 0640 05/05/17 0640 Objective Remarks Sleeping but arousable. No acute distress Left lower extremity: Dressings in place without significant drainage. Grossly intact distally. Negative Homans Assessment & Plan Assessment and Plan 87-year-old female, POD#1 s/p L IMN for intertrochanteric femur fracture 1. Partial weightbearing 50% left lower extremity 2. Physical therapy for mobilization 3. Lovenox for DVT prophylaxis while in house with plan to change to xarelto upon discharge 4. Dressing changes to start postop day 2 5. Ortho stable for discharge. Follow-up in clinic in 2 weeks. Dania Guillory MD May 05, 2017 12:46
[2017-05-05] MEDS ORDERED: XARE10TA PO (12:47)
[2017-05-05] MEDS ORDERED: HYDR-3516 PO (12:47)
[2017-05-05] MEDS: MULTIVITAMIN TAB PO SCH (15:19)
[2017-05-05] MEDS: MELATONIN 5 MG TAB PO SCH (21:00)
[2017-05-06] MEDS: ENOXAPARIN SODIUM 40 MG/0.4 ML SYRINGE SQ SCH (03:05)
[2017-05-06] MEDS: LORazepam 0.5 MG TAB PO PRN (03:05)
[2017-05-06 03:49] VITALS: PULSE 72
[2017-05-06 04:20] VITALS: BP 106/72; PULSE 71; RESP 16; TEMP 98.2; O2SAT 93
--- NOTE | 2017-05-06 07:51 | PD.ORT.PN ---
Subjective Subjective Remarks Patient resting comfortably. Baseline dementia. Objective Vitals Vital Signs Date Time Temp Pulse Resp B/P (MAP) Pulse Ox O2 Delivery O2 Flow Rate FiO2 05/06/17 04:20 98.2 71 16 106/72 (83) 93 05/06/17 03:49 72 05/05/17 23:43 97 05/05/17 23:30 97.0 67 16 116/56 (76) 93 05/05/17 21:35 81 05/05/17 21:35 Room Air 05/05/17 20:40 97.5 71 17 121/59 (79) 94 05/05/17 19:36 72 05/05/17 17:48 77 05/05/17 16:00 97.1 85 18 119/57 (77) 95 05/05/17 13:30 81 05/05/17 12:00 97.8 97 18 124/57 (79) 95 05/05/17 10:54 93 05/05/17 08:15 105 I/O 05/05/17 05/05/17 05/05/17 05/06/17 05/06/17 05/06/17 07:00 15:00 23:00 07:00 15:00 23:00 Intake Total 1150 ml 60 ml 0 ml Output Total 175 ml 200 ml 0 ml Balance -175 ml 950 ml 60 ml 0 ml Intake Oral 360 ml 60 ml 0 ml IV Total 790 ml Output Urine Total 175 ml 200 ml 0 ml # Voids 1 # Bowel Movements 0 0 0 1 Result Diagram: 05/05/17 0640 05/05/17 0640 Objective Remarks Sleeping but arousable. No acute distress Left lower extremity: Dressings in place without significant drainage. Grossly intact distally. Negative Homans Assessment & Plan Assessment and Plan 87-year-old female, POD#2 s/p L IMN for intertrochanteric femur fracture 1. Partial weightbearing 50% left lower extremity 2. Physical therapy for mobilization 3. Lovenox for DVT prophylaxis while in house with plan to change to xarelto upon discharge 4. Dressing changes to start postop day 2 5. Ortho stable for discharge. Follow-up in clinic in 2 weeks. Dania Guillory MD May 06, 2017 07:51
[2017-05-06 08:00] VITALS: BP 126/68; PULSE 88; RESP 21; TEMP 97.6; O2SAT 99
[2017-05-06] MEDS: SODIUM CHLOR 0.9% 1000 ML INJ 1,000 ML IV SCH (08:31)
[2017-05-06] MEDS: SODIUM CHLORIDE 0.9% FLUSH 10 ML FLUSH IV FLUSH SCH ×2 (09:00→10:03)
[2017-05-06] MEDS: MULTIVITAMIN TAB PO SCH (10:00)
[2017-05-06] MEDS: ACETAMINOPHEN/HYDROcodone 325 MG/5 MG TAB PO PRN (10:00)
[2017-05-06] MEDS: DOCUSATE SODIUM 50 MG/SENNA 8.6 MG TAB PO SCH (10:00)
[2017-05-06] MEDS: CITALOPRAM HYDROBROMIDE 20 MG TAB PO SCH (10:01)
[2017-05-06] MEDS: MEMANTINE HCL 10 MG TAB PO SCH (10:01)
[2017-05-06 11:04] VITALS: BP 149/69; PULSE 96; RESP 17; TEMP 96.2; O2SAT 100
--- NOTE | 2017-05-06 11:29 | HHI.PR ---
Subjective Remarks In the bed,son at bedside. appears innad. Says she is eating better per son. Patient with baseline dementia. Pleasant at this time. However is noted with agitation at times. No n/v/d/c. Denies any ayers at this time. Objective Vitals Vital Signs Date Time Temp Pulse Resp B/P (MAP) Pulse Ox O2 Delivery O2 Flow Rate FiO2 05/06/17 11:04 96.2 96 17 149/69 (95) 100 05/06/17 08:00 97.6 88 21 126/68 (87) 99 05/06/17 04:20 98.2 71 16 106/72 (83) 93 05/06/17 03:49 72 05/05/17 23:43 97 05/05/17 23:30 97.0 67 16 116/56 (76) 93 05/05/17 21:35 81 05/05/17 21:35 Room Air 05/05/17 20:40 97.5 71 17 121/59 (79) 94 05/05/17 19:36 72 05/05/17 17:48 77 05/05/17 16:00 97.1 85 18 119/57 (77) 95 05/05/17 13:30 81 05/05/17 12:00 97.8 97 18 124/57 (79) 95 I/O 05/05/17 05/05/17 05/05/17 05/06/17 05/06/17 05/06/17 07:00 15:00 23:00 07:00 15:00 23:00 Intake Total 1150 ml 60 ml 0 ml Output Total 175 ml 200 ml 0 ml Balance -175 ml 950 ml 60 ml 0 ml Intake Oral 360 ml 60 ml 0 ml IV Total 790 ml Output Urine Total 175 ml 200 ml 0 ml Bladder Scan Volume Amount 0 ml # Voids 1 1 # Bowel Movements 0 0 0 1 Result Diagram: 05/05/1763905/05/17639 Imaging Last Impressions Hip and Pelvis X-Ray 05/04/17401 Signed Impressions: Service Date/Time: Thursday, May 04, 2017 04:25 - CONCLUSION: 1. Fracture proximal left femur with varus angulation. Randy Padilla MD Femur X-Ray 05/04/17401 Signed Impressions: Service Date/Time: Thursday, May 04, 2017 04:31 - CONCLUSION: 1. Fracture proximal left femur with varus angulation as above. Randy Padilla MD Chest X-Ray 05/04/17 0402 Signed Impressions: Service Date/Time: Thursday, May 04, 2017 04:19 - CONCLUSION: 1. No acute findings. Calcified granuloma right lung. Randy Padilla MD Hip X-Ray 05/04/17 0000 Signed Impressions: Service Date/Time: Thursday, May 04, 2017 15:37 - CONCLUSION: Intraoperative images. Chon Calix MD Head CT 05/04/17 0000 Signed Impressions: Service Date/Time: Thursday, May 04, 2017 05:10 - CONCLUSION: 1. No acute intracranial abnormalities. Randy Padilla MD Cervical Spine CT 05/04/17 0000 Signed Impressions: Service Date/Time: Thursday, May 04, 2017 05:11 - CONCLUSION: 1. No acute fracture. Severe degenerative disc disease. Randy Padilla MD Objective Remarks GENERAL: Elderly frail female appears in nad. CARDIOVASCULAR: Regular rate and rhythm without murmurs, gallops, or rubs. RESPIRATORY: Breath sounds equal bilaterally. No accessory muscle use. GASTROINTESTINAL: Abdomen soft, non-tender, nondistended. MUSCULOSKELETAL: Left hip s/p surgery no hematoma noted, dressing c/d/i. BACK: Nontender without obvious deformity. No CVA tenderness. A/P Assessment and Plan Left Proximal Femur fracture/Closed left hip fracture seen by Orthopedic Surgery doctor Dania Guillory S/P Intramedullary nail of her left femur fracture EKG normal sinus rhythm rate [address] elevation injury pattern or ectopy noted artifact is present at baseline hemoglobin 10.4 on admission. H/H stable post op CT brain noncontrast per reading radiologist reveals no acute intracranial abnormality or skull fracture CT cervical spine per reading radiologist degenerative changes but no fractures; pelvis/hip/femur x-ray shows no pelvic fracture shows base of left femoral neck fracture with v varus angulation. 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 Babatunde Garg to the number [phone] Follow laboratory in am tomorrow. Code Status DNR Discussed with the patient, nurse, son at bedside DC to SNF when arrangements done Cosma,Destinee MD May 06, 2017 11:29
--- NOTE | 2017-05-06 14:01 | HHI.DS ---
Discharge Summary Admission Date May 04, 2017 at 06:32 Discharge Date: May 06, 2017 Admitting Diagnosis Left hip fracture (1) Anxiety ICD Code: F41.9 - Anxiety disorder, unspecified (2) Alzheimer's dementia ICD Code: G30.9 - Alzheimer's disease, unspecified (3) Closed left hip fracture ICD Code: S72.002A - Fracture of unspecified part of neck of left femur, initial encounter for closed fracture Status: Acute Procedures S/P Intramedullary nail of her left femur fracture Brief History - From Admission This is a pleasant 87 y/o Female who came to ER brought in by EMS from local nursing facility, where she complaint of hip pain since dinnertime. Patient reportedly is identified to have soft tissue swelling of the proximal left lower extremity with complaint of severe pain. An on-call outpatient radiology service was ordered to obtain a portable x-ray which identified a fracture at the base of the neck of the left femur with angulation. Patient was subsequently transferred after the report was made available to the emergency department. Patient was administered morphine in route to the hospital. Patient with unknown source of injury. Staff reported stating that patient had not had a fall. It is unclear as to how patient was able to sustain an angulated fracture of the femoral neck without known injury. Patient with recent hospitalization for right hip fracture status post repair she had recent admission due to a fall with Right hip pain, had Intratrochanteric fracture of the Right proximal femur. Seen in her bedroom, still somnolent, will continue IV fluids and she will have procedure later today, already discussed by Orthopedic meat specialist with her Son. History taken from records. CBC/BMP: 05/05/17 0640 05/05/17 0640 Significant Findings Laboratory Tests Test 05/04/17 04:15 05/04/17 17:10 05/05/17 06:40 Red Blood Count 3.63 MIL/MM3 (4.00-5.30) 2.77 MIL/MM3 (4.00-5.30) Hemoglobin 10.4 GM/DL (11.6-15.3) 8.1 GM/DL (11.6-15.3) Hematocrit 31.5 % (35.0-46.0) 24.4 % (35.0-46.0) Neutrophils (%) (Auto) 82.1 % (16.0-70.0) 72.3 % (16.0-70.0) Lymphocytes (%) (Auto) 8.6 % (9.0-44.0) Monocytes (%) (Auto) 9.1 % (0.0-8.0) 13.6 % (0.0-8.0) Lymphocytes # (Auto) 0.8 TH/MM3 (1.0-4.8) Prothrombin Time 12.4 SEC (9.8-11.6) Random Glucose 151 MG/DL (74-106) Albumin 3.3 GM/DL (3.4-5.0) 2.9 GM/DL (3.4-5.0) Alkaline Phosphatase 153 U/L (45-117) 126 U/L (45-117) Aspartate Amino Transf (AST/SGOT) 14 U/L (15-37) Estimat Glomerular Filtration Rate 68 ML/MIN (>89) Urine Bacteria RARE /hpf (NONE) Urine Mucus FEW /lpf (OCC) Monocytes # (Auto) 1.4 TH/MM3 (0-0.9) Total Protein 6.0 GM/DL (6.4-8.2) Calcium Level 8.4 MG/DL (8.5-10.1) Phosphorus Level 2.4 MG/DL (2.5-4.9) Chloride Level 111 MEQ/L (98-107) Imaging Last Impressions Hip and Pelvis X-Ray 05/04/17401 Signed Impressions: Service Date/Time: Thursday, May 04, 2017 04:25 - CONCLUSION: 1. Fracture proximal left femur with varus angulation. Randy Padilla MD Femur X-Ray 05/04/17401 Signed Impressions: Service Date/Time: Thursday, May 04, 2017 04:31 - CONCLUSION: 1. Fracture proximal left femur with varus angulation as above. Randy Padilla MD Chest X-Ray 05/04/17401 Signed Impressions: Service Date/Time: Thursday, May 04, 2017 04:19 - CONCLUSION: 1. No acute findings. Calcified granuloma right lung. Randy Padilla MD Hip X-Ray 05/04/17 0000 Signed Impressions: Service Date/Time: Thursday, May 04, 2017 15:37 - CONCLUSION: Intraoperative images. Chon Calix MD Head CT 05/04/17 0000 Signed Impressions: Service Date/Time: Thursday, May 04, 2017 05:10 - CONCLUSION: 1. No acute intracranial abnormalities. Randy Padilla MD Cervical Spine CT 05/04/17 0000 Signed Impressions: Service Date/Time: Thursday, May 04, 2017 05:11 - CONCLUSION: 1. No acute fracture. Severe degenerative disc disease. Randy Padilla MD PE at Discharge GENERAL: Elderly frail female appears in nad. CARDIOVASCULAR: Regular rate and rhythm without murmurs, gallops, or rubs. RESPIRATORY: Breath sounds equal bilaterally. No accessory muscle use. GASTROINTESTINAL: Abdomen soft, non-tender, nondistended. MUSCULOSKELETAL: Left hip s/p surgery no hematoma noted, dressing c/d/i. BACK: Nontender without obvious deformity. No CVA tenderness. Hospital Course Left Proximal Femur fracture/Closed left hip fracture seen by Orthopedic Surgery doctor Dania Guillory S/P Intramedullary nail of her left femur fracture EKG normal sinus rhythm rate [address] elevation injury pattern or ectopy noted artifact is present at baseline hemoglobin 10.4 on admission. H/H stable post op CT brain noncontrast per reading radiologist reveals no acute intracranial abnormality or skull fracture CT cervical spine per reading radiologist degenerative changes but no fractures; pelvis/hip/femur x-ray shows no pelvic fracture shows base of left femoral neck fracture with v varus angulation. Protein calorie malnutrition with low BMI of 17.5. Patient has dementia and is probably not eating much . Expect deterioration or dehydration and frequent hospitalizations. To consider palliative care and hospice eval. as OP, to follow up as OP with PCP Alzheimer dementia- Resume Namenda Anxiety- Resume Celexa. Added ativan prn DVT prophylaxis by Orthopedic Surgery after procedure DC to SNF in stable condition to follow up as OP with PCP and consultants. Pt Condition on Discharge: Stable Discharge Disposition: Discharge to SNF Discharge Time: > 30 minutes Discharge Instructions DIET: Follow Instructions for: Heart Healthy Diet Activities you can perform: Regular-No Restrictions Follow up Referrals: Orthopedics - 2 Weeks [facility] with Dania Guillory MD PCP Follow-up - 2-3 Days New Medications: Rivaroxaban (Xarelto) 10 Mg Tab 10 MG PO DAILY for Blood Clot Prevention for 14 Days, #14 TAB 0 Refills Hydrocodone/Acetaminophen (Hydrocodone-Acetamin 5-325 mg) 5 Mg-325 Mg Tablet 1 TAB PO Q4H PRN for pain, #45 TAB Changed Medications: Lorazepam (Ativan) 0.5 Mg Tab 0.5 MG PO Q8HR PRN for agitation, #90 TAB (Changed from: Q12H) Continued Medications: Calcium Carbonate-Vitamin D (Calcium 600+D 200) 600-200 Mg-Unit Tab 1 TAB PO BID for Nutritional Supplement, #90 TAB 0 Refills Cholecalciferol (D3 Maximum Strength) 5,000 Unit Cap 5000 UNITS PO DAILY for Nutritional Supplement, #30 CAP 0 Refills Citalopram (Celexa) 10 Mg Tab 10 MG PO DAILY for Control Depression, #30 TAB 0 Refills Diphenhydramine HCl (Benadryl Allergy) 25 Mg Cap 25 MG PO Q6H PRN for ITCHING, #120 CAP Ergocalciferol (Ergocalciferol) 50,000 Unit Cap 64296 UNITS PO Q7D for Nutritional Supplement, #8 CAP Melatonin (Melatonin) 5 Mg Tab 3 MG PO HS for Provide Good Sleep, TAB 0 Refills Memantine (Memantine) 10 Mg Tab 10 MG PO DAILY for Alzheimer's Dementia, TAB 0 Refills Multiple Vitamin (Multiple Vitamin) 1 Tab 1 TAB PO DAILY for Nutritional Supplement, TAB 0 Refills Sennosides-Docusate Sodium (Senna-Plus) 8.6-50 Mg Tab 2 TAB PO DAILY for Constipation, TAB 0 Refills [Albuterol-Ipratropium Neb] () 1 AMPULE NEBU 1 AMPULE NEB Q2HR NEB PRN for SOB/WHEEZING, #120 AMPULE [Bone Up] () DAILYPRN Discontinued Medications: Hydrocodone-Acetaminophen ([place]) 5 Mg-325 Mg Tab 1 TAB PO Q4H PRN for PAIN, #40 TAB 0 Refills Rivaroxaban (Xarelto) 10 Mg Tab 10 MG PO DAILY for Blood Clot Prevention, #14 TAB 0 Refills Destinee Dial MD May 06, 2017 14:01
[2017-05-06] MEDS ORDERED: LORA-392 PO (14:04)
[2017-05-06] MEDS ORDERED: LORazepam 0.5 MG TAB PO PRN (15:00)
[2017-05-06] MEDS ORDERED: LORazepam 1 MG TAB PO ONE (15:00)
[2017-05-06 15:45] VITALS: PULSE 78
[2017-05-06 16:00] VITALS: BP 121/59; PULSE 80; RESP 19; TEMP 97.7; O2SAT 97
--- NOTE | 2017-05-08 08:18 | PD.OP ---
cc: Dania Guillory MD Operative Report Closed left intertrochanteric femur fracture Postoperative Diagnosis: same Procedure: Intramedullary nail left intertrochanteric femur fracture Anesthesia: general Surgeon: Dania Guillory Sand Miller(s): none Operation and Findings: EBL: 100 cc Complications: None Specimens: None Indications for procedure: Patient is a 87-year-old demented female who resides in a nursing facility with unwitnessed injury presents with left hip pain. Given patient's dementia, options of management were discussed with her son and power of securities counselor. Risks of surgery including but not limited to: Infection, nonunion or malunion, hardware malposition or failure, possible need for further surgery, neurovascular injury, and other unforeseen complications were all discussed. At this time the patient has consented to the procedure. Description of procedure: Patient was brought back to the operating room where general anesthesia then ensued. Patient was then positioned on the operating room fracture table with all bony prominences well padded. Patient was prepped and draped in standard sterile fashion. Preoperative antibiotics were given within 1 hour of incision. A timeout was performed to identify correct patient , side, site and procedure to be performed. At this time the fracture was reduced on the table with the use of traction and rotation. A small approximate 2 inch incision was made just proximal and posterior to the greater trochanter. A guidewire was then placed in the tip of the greater trochanter on the AP and lateral radiographs. This was advanced to the lesser trochanteric region. An opening reamer was then used to allow access to the femoral canal and advanced to the lesser trochanteric region. At this time an 11 mm diameter Synthes TFN nail was then placed and advanced into appropriate position on both AP and lateral radiographs. A small lateral based incision was made to allow the drill guides for the proximal screw to be placed through the subcutaneous tissue and fascia down to the lateral cortex. A guidewire was then placed in the femoral neck and into the femoral head in a center center position on AP and lateral radiographs. This was subsequently measured and drilled and then placed. This was verified to be in acceptable position on AP and lateral radiographs. The proximal locking screw was then tightened and backed off a half turn. The guides for the distal locking screw was then placed through a small lateral based incision. This was then drilled, measured and subsequently placed. Final x-rays were obtained which limited the fracture was in acceptable alignment and the hardware was in good position. The insertion handle was then removed. All wounds were thoroughly irrigated with normal saline laden with gentamicin. The subcutaneous tissue and fascia was closed with interrupted Vicryl sutures and the skin subsequently closed with carie. Sterile dressings were then applied. Patient was transferred off the operating room table and awoken from general anesthesia without complication. Disposition: Patient be partial weightbearing 50% of the left lower extremity. Dania Guillory MD May 08, 2017 08:18
== END 2017-05-06 17:35 | DRG 481 ==
LOC: NEPC 03:56 → NEDA 06:32 → N06B 07:36 → N06A 05-05 18:19
PROVIDERS: ADMIT Hospitalist; ATTEND Hospitalist
PROC: 0QS706Z Reposition Left Upper Femur with Intramedullary Internal Fixation Device, Open Approach (ICD-10-PCS; principal; 2017-05-04 14:02)
DX: S72.002A Fracture of unspecified part of neck of left femur, initial encounter for closed fracture (principal); E46 Unspecified protein-calorie malnutrition; G30.9 Alzheimer's disease, unspecified; F02.80 Dementia in other diseases classified elsewhere, unspecified severity, without behavioral disturbance, psychotic disturbance, mood disturbance, and anxiety; Z68.1 Body mass index [BMI] 19.9 or less, adult; R13.10 Dysphagia, unspecified; X58.XXXA Exposure to other specified factors, initial encounter; Y92.129 Unspecified place in nursing home as the place of occurrence of the external cause; F32.9 Major depressive disorder, single episode, unspecified; Z96.641 Presence of right artificial hip joint; F41.9 Anxiety disorder, unspecified; Z66 Do not resuscitate
CPT/HCPCS: 70450; 71045; 72125; 73502; 73552; 76000; 80053; 81001; 83735; 84100; 85025; 85610; 85730; 86850; 86900; 86901; 86920; 87086; 93005; 96374; C1713; J0131; J0690; J1100; J1580; J1650; J2270; J2370; J2405; J3010; J3370; J7030; J7050